=== PATIENT | male | born 1955 | race Caucasian/White ===

== ENCOUNTER 2021-06-30 15:07 | Emergency (ER) | payer MEDICARE, OTHER ==
[2021-06-30 16:14] VITALS: TEMP 97.9
--- NOTE | 2021-06-30 16:59 | XR ---
EXAMINATION TYPE: XR knee complete RT DATE OF EXAM: 06/30/2021 COMPARISON: NONE HISTORY: 66 years Male. STUDY INDICATION GIVEN: pain/fall . TECHNIQUE: 3 radiographs of the right knee IMPRESSION: No acute fracture or dislocation.No significant knee joint effusion. Normal knee joint alignment with mild to moderate tricompartmental osteoarthrosis. Distal quadriceps enthesophytes. Sclerosis of the distal femoral diaphysis which may be reflective of remote infarction, additional et iologies cannot be entirely excluded. Recommend correlation with another prior knee imaging and/or ob taining right femur MRI with and without contrast, may be performed on outpatient basis. Vascular calcifications are seen posteriorly.
--- NOTE | 2021-06-30 17:00 | XR ---
EXAMINATION TYPE: XR shoulder complete LT DATE OF EXAM: 06/30/2021 COMPARISON: NONE HISTORY: 66 years Male. STUDY INDICATION GIVEN: pain/fall . TECHNIQUE: 3 radiographs of the left shoulder IMPRESSION: No acute fracture or dislocation. Mild overlying soft tissue swelling. No significant degenerative changes seen.
[2021-06-30] MEDS ORDERED: ACET/COD 300 MG/30 MG STARTER PACK 6 TAB BTL PO STA (18:07)
[2021-06-30] MEDS ORDERED: Acetaminophen-Codeine 300-30mg TAB PO STA (18:07)
--- NOTE | 2021-06-30 18:08 | ED ---
Fall HPI - General Chief Complaint: Fall Stated Complaint: Fall Time Seen by Provider: 06/30/21 17:11 Source: patient Mode of arrival: EMS - History of Present Illness Initial Comments: Stef is a 76-year-old male with a history of Parkinson's disease presents to the ER today after a fall in his bathroom. Patient reports he sometimes has trouble when he starts walking due to the Parkinson's disease. Today he fell he grabbed his shower curtain with his left arm and fell onto his right knee. Patient reports pain in the left shoulder and right knee. He has been ambulatory since the fall A history of surgery to the knee and thought he should get checked out. - Related Data Allergies Allergy/AdvReac Type Severity Reaction Status Date / Time latex Allergy Unknown Verified 06/30/21 16:06 Review of Systems ROS Statement: Those systems with pertinent positive or pertinent negative responses have been documented in the HPI. ROS Other: All systems not noted in ROS Statement are negative. Past Medical History Past Medical History: Diabetes Mellitus, Hypertension Additional Past Medical History / Comment(s): parkinsons diseas History of Any Multi-Drug Resistant Organisms: None Reported Past Surgical History: No Surgical Hx Reported Past Psychological History: No Psychological Hx Reported Smoking Status: Never smoker Past Alcohol Use History: None Reported Past Drug Use History: None Reported General Exam - General Exam Comments Initial Comments: Physical Exam GENERAL: Patient is well-developed and well-nourished. Patient is nontoxic and well- hydrated and is in no distress. HENT: Normocephalic, Atraumatic. EYES: PERRL, EOMI PULMONARY: Unlabored respirations. No audible rales rhonchi or wheezing was noted. CARDIOVASCULAR: There is a regular rate and rhythm without any murmurs gallops or rubs. ABDOMEN: Soft and nontender with normal bowel sounds. SKIN: Skin is clear with no lesions or rashes and otherwise unremarkable. No bruising to shoulder : Deferred NEUROLOGIC: Patient is alert and oriented x3. Moving all extremities spontaneously No resting tremor MUSCULOSKELETAL: Normal extremities with adequate strength and full range of motion. No lower extremity swelling or edema. No calf tenderness. PSYCHIATRIC: Normal psychiatric evaluation. Limitations: no limitations Course Vital Signs 06/30/21 06/30/21 16:06 18:32 Temperature 97.9 F Pulse Rate 110 H 85 Respiratory 20 18 Rate Blood Pressure 150/96 147/87 O2 Sat by Pulse 95 95 Oximetry Medical Decision Making - Medical Decision Making Patient was seen and evaluated x-rays were reviewed him a no acute injuries were identified patient was treated with Tylenol 3 discharged home Disposition Clinical Impression: Fall Disposition: HOME SELF-CARE Condition: Stable Instructions (If sedation given, give patient instructions): Fall Prevention (ED) Is patient prescribed a controlled substance at d/c from ED?: No Referrals: Claribel Lopez MD [Primary Care Provider] - 1-2 days
[2021-06-30 18:34] VITALS: BP 147/87; PULSE 85; RESP 18
== END 2021-06-30 18:34 | disposition home or self-care (01) ==
LOC: EC 15:07
DX: M25.512 Pain in left shoulder (principal); M25.561 Pain in right knee; E11.9 Type 2 diabetes mellitus without complications; I10 Essential (primary) hypertension; Z91.040 Latex allergy status; W18.30XA Fall on same level, unspecified, initial encounter; Y92.002 Bathroom of unspecified non-institutional (private) residence as the place of occurrence of the external cause
CPT/HCPCS: 99284

== ENCOUNTER 2021-11-12 16:08 | Emergency (ER) | payer MEDICARE ==
[2021-11-12 16:17] VITALS: TEMP 98.2
[2021-11-12] MEDS ORDERED: SODIUM CHLORIDE 0.9% 2,000 ML IV STA (19:25)
--- NOTE | 2021-11-12 20:04 | XR ---
EXAMINATION TYPE: XR KUB DATE OF EXAM: 11/12/2021 COMPARISON: NONE HISTORY: Abdominal pain TECHNIQUE: 2 views upright FINDINGS: There is no sign of intestinal obstruction or pneumoperitoneum. Fecal pattern is normal. Jaycee ng bases are clear. There are no pathologic calcifications over the kidneys. IMPRESSION: Nonacute abdomen.
[2021-11-12 20:27] LABS: Basophils # (A) 0.1 k/uL (0-0.2); Basophils % (A) 1 %; Eosinophils # (A) 0.3 k/uL (0-0.7); Eosinophils % (A) 3 %; HCT 49.9 % (39.0-53.0); HGB 16.9 gm/dL (13.0-17.5); Lymphocytes # (A) 2.2 k/uL (1.0-4.8); Lymphocytes % (A) 22 %; MCH 30.2 pg (25.0-35.0); MCHC 33.9 g/dL (31.0-37.0); MCV 89.1 fL (80.0-100.0); Monocytes # (A) 0.5 k/uL (0-1.0); Monocytes % (A) 6 %; Neutrophils # (A) 6.6 k/uL (1.3-7.7); Neutrophils % (A) 68 %; Platelet Count 169 k/uL (150-450); RBC 5.61 m/uL (4.30-5.90); RDW 12.6 % (11.5-15.5); WBC 9.8 k/uL (3.8-10.6)
[2021-11-12 20:36] LABS: Albumin 4.4 g/dL (3.5-5.0); Calcium 9.1 mg/dL (8.4-10.2); Potassium 4.3 mmol/L (3.5-5.1); Total Protein 7.1 g/dL (6.3-8.2)
[2021-11-12] MEDS ORDERED: KETOROLAC 15 MG/ML 1 ML VIAL IVP STA (21:24)
--- NOTE | 2021-11-12 21:28 | CT ---
EXAMINATION TYPE: CT abdomen pelvis w con DATE OF EXAM: 11/12/2021 COMPARISON: None HISTORY: abdominal pain and distention CT DLP: 1634.2 mGycm Automated exposure control for dose reduction was used. CONTRAST: Performed with IV Contrast, patient injected with 100 mL of Isovue 300. Images obtained from the diaphragm to the floor the pelvis with IV contrast. Lung bases are clear. No pleural effusion. Heart size is normal. No pericardial effusion. Liver splee n and stomach pancreas appear intact. The bile duct are not dilated. There is no adrenal mass. Right kidney appears normal. Left kidney is small with cortical thinning. T here is enhancement of both kidneys. No renal obstruction. There is compensatory hypertrophy of the r ight kidney. No retroperitoneal adenopathy. There are some dilated vessels over the anterior abdomen. Bladder distends smoothly. There is prostate calcification. There is no inguinal hernia. No free flui d in the pelvis. There is no mesenteric edema. No ascites or free air. No bowel obstruction. The lumbar vertebra have normal alignment. There is disc space narrowing at L4-5 and L5-S1. No compre ssion fracture. Bony pelvis is intact. The hip joints are intact. Abdominal aorta is atheromatous. Appendix not clearly seen. No sign of thickened appendix. IMPRESSION: No acute abnormality of the abdomen and pelvis. Appendix not seen. There are prominent vessels over the anterior abdomen. This could relate to portal venous hypertensio n with varices. Hypoplastic or atrophic left kidney. Compensatory hypertrophy of the right kidney. No renal mass or o bstruction. 2 mm left renal calculus.
[2021-11-12] MEDS ORDERED: LIDOCAINE 5% PATCH TOPICAL SCH (21:30)
[2021-11-12] MEDS ORDERED: PEG 3350-NA SULF,BICARB,CL/KCL 4,000 ML BOTTLE PO ONE (21:56)
--- NOTE | 2021-11-12 22:04 | ED ---
General Adult HPI - General Chief complaint: Abdominal Pain Stated complaint: Abd Pain/Blood in Stool Time Seen by Provider: 11/12/21 19:09 Source: patient Mode of arrival: wheelchair Limitations: no limitations - History of Present Illness Initial comments: Patient is 66-year-old male who presents to the emergency department with a chief complaint of constipation. Patient states he has experienced intermittent constipation for the past 2 weeks. Patient states he had large bowel movement 2 days ago after milk of magnesia and prune juice. Patient states he feels constipated again today. Patient states he has had 4 small bowel movements today, nonbloody and has been passing gas. No nausea or vomiting. No abdominal pain but does feel bloated like he just ate a big meal. No history of bowel obstruction or abdominal surgery. Patient also mentions that his tailbone is sore from sliding in the bathtub. He did not fall. He has no other concerns. - Related Data Home Medications Medication Instructions Recorded Confirmed Carbidopa-Levodopa 25-100 mg 1 tab PO TID 11/12/21 11/12/21 [Sinemet 25-100] Dulaglutide [Trulicity] 1.5 mg SQ TU 11/12/21 11/12/21 Folic Acid 1 mg PO DAILY 11/12/21 11/12/21 Furosemide [Lasix] 20 mg PO DAILY 11/12/21 11/12/21 Insulin Glargine,Hum.rec.anlog 36 unit SQ DAILY 11/12/21 11/12/21 [Basaglar Kwikpen U-100] Potassium Chloride ER [K-Dur 10] 10 meq PO DAILY 11/12/21 11/12/21 Rosuvastatin Calcium [Crestor] 5 mg PO DAILY 11/12/21 11/12/21 amLODIPine [Norvasc] 5 mg PO DAILY 11/12/21 11/12/21 lisinopriL [Prinivil] 20 mg PO BID 11/12/21 11/12/21 metFORMIN HCL [Glucophage] 500 mg PO BID 11/12/21 11/12/21 Previous Rx's Medication Instructions Recorded Lidocaine 5% Patch [Lidoderm] 1 patch TOPICAL DAILY PRN #7 patch 11/12/21 Allergies Allergy/AdvReac Type Severity Reaction Status Date / Time latex Allergy Rash/Hives Verified 11/12/21 22:05 amantadine AdvReac constipatio Verified 11/12/21 22:06 n Review of Systems ROS Statement: Those systems with pertinent positive or pertinent negative responses have been documented in the HPI. ROS Other: All systems not noted in ROS Statement are negative. Past Medical History Past Medical History: Diabetes Mellitus, Hypertension Additional Past Medical History / Comment(s): parkinsons diseas History of Any Multi-Drug Resistant Organisms: None Reported Past Surgical History: No Surgical Hx Reported Past Psychological History: No Psychological Hx Reported Smoking Status: Never smoker Past Alcohol Use History: None Reported Past Drug Use History: None Reported General Exam Limitations: no limitations General appearance: alert, in no apparent distress Head exam: Present: atraumatic, normocephalic, normal inspection Eye exam: Present: normal appearance, PERRL, EOMI. Absent: scleral icterus, conjunctival injection, periorbital swelling Neck exam: Present: normal inspection Respiratory exam: Present: normal lung sounds bilaterally. Absent: respiratory distress, wheezes, rales, rhonchi, stridor Cardiovascular Exam: Present: regular rate, normal rhythm, normal heart sounds. Absent: systolic murmur, diastolic murmur, rubs, gallop, clicks GI/Abdominal exam: Present: soft, distended (moderate), normal bowel sounds. Absent: tenderness, guarding, rebound, rigid Back exam: Present: normal inspection, full ROM. Absent: tenderness, paraspinal tenderness, vertebral tenderness Neurological exam: Present: alert, oriented X3, CN II-XII intact Psychiatric exam: Present: normal affect, normal mood Skin exam: Present: warm, dry, intact, normal color. Absent: rash Course Vital Signs 11/12/21 11/12/21 16:15 22:47 Temperature 98.2 F 98.2 F Pulse Rate 111 H 98 Respiratory 18 17 Rate Blood Pressure 160/96 156/90 O2 Sat by Pulse 98 98 Oximetry Medical Decision Making - Medical Decision Making This is a 66-year-old male who presents with constipation. Thorough history and examination were performed. Patient is well-appearing and in no apparent distress. The abdomen is moderately distended and nontender. Patient denies abdominal pain, nausea, vomiting. Patient had 4 small bowel movements today. No history of bowel obstruction or abdominal surgery. KUB was obtained which showed possible air-fluid levels. With patient's distention and older age acute abdominal process could not be ruled out. CT of the abdomen and pelvis without contrast was obtained and reviewed with me by Dr. Garrido which showed moderate stool in the proximal colon. Results discussed with patient. With stool in the right colon is unlikely that an enema would benefit patient's constipation. Patient will be sent home with [employer] with instruction to start in the morning. I will also send him lidocaine patches for his tailbone. He declines imaging of the tailbone at this time. There is no evidence of injury. Patient instructed to follow-up with his primary care provider in one to 2 days. Return parameters discussed. Patient verbalizes understanding and is agreeable to this plan. Dr. Garrido is my attending. - Lab Data Result diagrams: 11/12/21 20:07 11/12/21 20:07 Lab Results 11/12/21 11/12/21 Range/Units 20:07 20:07 WBC 9.8 (3.8-10.6) k/uL RBC 5.61 (4.30-5.90) m/uL Hgb 16.9 (13.0-17.5) gm/dL Hct 49.9 (39.0-53.0) % MCV 89.1 (80.0-100.0) fL MCH 30.2 (25.0-35.0) pg MCHC 33.9 (31.0-37.0) g/dL RDW 12.6 (11.5-15.5) % Plt Count 169 (150-450) k/uL MPV 7.0 Neutrophils % 68 % Lymphocytes % 22 % Monocytes % 6 % Eosinophils % 3 % Basophils % 1 % Neutrophils # 6.6 (1.3-7.7) k/uL Lymphocytes # 2.2 (1.0-4.8) k/uL Monocytes # 0.5 (0-1.0) k/uL Eosinophils # 0.3 (0-0.7) k/uL Basophils # 0.1 (0-0.2) k/uL Sodium 135 L (137-145) mmol/L Potassium 4.3 (3.5-5.1) mmol/L Chloride 99 (98-107) mmol/L Carbon Dioxide 27 (22-30) mmol/L Anion Gap 9 mmol/L BUN 26 H (9-20) mg/dL Creatinine 1.04 (0.66-1.25) mg/dL Est GFR (CKD-EPI)AfAm 86 (>60 ml/min/1.73 sqM) Est GFR (CKD-EPI)NonAf 74 (>60 ml/min/1.73 sqM) Glucose 136 H (74-99) mg/dL Calcium 9.1 (8.4-10.2) mg/dL Total Bilirubin 1.0 (0.2-1.3) mg/dL AST 33 (17-59) U/L ALT 39 (4-49) U/L Alkaline Phosphatase 93 (38-126) U/L Total Protein 7.1 (6.3-8.2) g/dL Albumin 4.4 (3.5-5.0) g/dL Lipase 69 (23-300) U/L Disposition Clinical Impression: Constipation, Tailbone injury, Abdominal distension Disposition: HOME SELF-CARE Condition: Good Instructions (If sedation given, give patient instructions): Constipation (ED) Additional Instructions: Please use GoLYTELY tomorrow as directed. Apply lidocaine patches as directed. Follow-up with your primary care provider in one to 2 days. Return to the emergency department experience new, concerning, or worsening symptoms. Prescriptions: Lidocaine 5% Patch [Lidoderm] 1 patch TOPICAL DAILY PRN #7 patch PRN Reason: Pain Is patient prescribed a controlled substance at d/c from ED?: No Referrals: Claribel Lopez MD [Primary Care Provider] - 1-2 days Time of Disposition: 22:04
[2021-11-12 22:48] VITALS: BP 156/90; PULSE 98; RESP 17
== END 2021-11-12 22:48 | disposition home or self-care (01) ==
LOC: EC 16:08
DX: S39.92XA Unspecified injury of lower back, initial encounter (principal); K59.00 Constipation, unspecified; R14.0 Abdominal distension (gaseous); I10 Essential (primary) hypertension; E11.9 Type 2 diabetes mellitus without complications; Z91.040 Latex allergy status; X58.XXXA Exposure to other specified factors, initial encounter
CPT/HCPCS: 99284; 96374; 96361; 36415; 80053; 83690; 85025; 74018; 74177; J1885; Q9967

== ENCOUNTER 2021-12-16 06:44 | Day surgery (SDC) | payer MEDICARE ==
[2021-12-15 08:27] VITALS: BMI 29.8
[2021-12-16] MEDS ORDERED: LACTATED RINGERS 1,000 ML IV SCH (07:08)
[2021-12-16 07:31] VITALS: TEMP 97
[2021-12-16] MEDS ORDERED: LIDOCAINE 1% (10MG/ML) FOR IV START INTRADERMA ONE (07:35)
[2021-12-16 07:37] LABS: Glucose,Whole Blood 143 mg/dL (70-110)
[2021-12-16] MEDS ORDERED: PROPOFOL 10 MG/ML 20 ML VIAL IV ONE (07:45)
--- NOTE | 2021-12-16 07:55 | P.GSHP ---
History of Present Illness H&P Date: 12/16/21 Chief Complaint: Constipation: This is a 66-year-old male with history of change in bowel habits with constipation. Patient resents today for colonoscopy. Past Medical History Past Medical History: Diabetes Mellitus, Hyperlipidemia, Hypertension, Osteoarthritis (OA) Additional Past Medical History / Comment(s): parkinsons disease, CONSTIPATION, PLANTAR FACIITITS, NEUROPATHY, RT BIG TOE BUNION History of Any Multi-Drug Resistant Organisms: None Reported Past Surgical History: No Surgical Hx Reported, Tonsillectomy Additional Past Surgical History / Comment(s): CYSTOPSCOPY, SX FOR BLOCKKED URETHRA, COLONOSCOPY, BILAT CATARACTS REMOVED WITH LENS IMPLANTS Past Anesthesia/Blood Transfusion Reactions: No Reported Reaction Smoking Status: Never smoker - Past Family History Mother Family Medical History: No Reported History Medications and Allergies Home Medications Medication Instructions Recorded Confirmed Type Carbidopa-Levodopa 25-100 mg 1 tab PO TID 11/12/21 12/16/21 History [Sinemet 25-100] Dulaglutide [Trulicity] 1.5 mg SQ TU 11/12/21 12/16/21 History Folic Acid 1 mg PO DAILY 11/12/21 12/16/21 History Furosemide [Lasix] 20 mg PO DAILY 11/12/21 12/16/21 History Insulin Glargine,Hum.rec.anlog 36 unit SQ DAILY 11/12/21 12/16/21 History [Basaglar Kwikpen U-100] Lidocaine 5% Patch [Lidoderm] 1 patch TOPICAL DAILY PRN #7 patch 11/12/21 Rx Potassium Chloride ER [K-Dur 10] 10 meq PO DAILY 11/12/21 12/16/21 History Rosuvastatin Calcium [Crestor] 5 mg PO DAILY 11/12/21 12/16/21 History amLODIPine [Norvasc] 5 mg PO DAILY 11/12/21 12/16/21 History lisinopriL [Prinivil] 20 mg PO BID 11/12/21 12/16/21 History metFORMIN HCL [Glucophage] 500 mg PO BID 11/12/21 12/16/21 History Acetaminophen [Tylenol Arthritis] 650 mg PO DAILY PRN 12/15/21 12/16/21 History Cholecalciferol [Vitamin D3 (25 50 mcg PO DAILY 12/15/21 12/16/21 History Mcg = 1000 Iu)] Docusate [Colace] 100 mg PO DAILY 12/15/21 12/16/21 History Lactulose 10 gm PO ONCE 12/15/21 12/16/21 History Linaclotide [Linzess] 145 mcg PO DAILY 12/15/21 12/16/21 History Metamucil-Gummies 5 mg PO DAILY 12/15/21 12/16/21 History Allergies Allergy/AdvReac Type Severity Reaction Status Date / Time latex Allergy Rash/Hives Verified 12/16/21 07:08 amantadine AdvReac constipatio Verified 12/16/21 07:08 n Surgical - Exam Vital Signs Temp Pulse Resp BP Pulse Ox 97.0 F L 92 18 175/83 93 L 12/16/21 07:29 12/16/21 07:29 12/16/21 07:29 12/16/21 07:29 12/16/21 07:29 - General well developed, well nourished, no distress - Eyes PERRL - ENT normal pinna - Neck no masses - Respiratory normal expansion - Cardiovascular Rhythm: regular - Abdomen Abdomen: soft, non tender Results - Labs Abnormal Lab Results - Last 24 Hours (Table) 12/16/21 Range/Units 07:37 POC Glucose (mg/dL) 143 H (70-110) mg/dL Assessment and Plan Assessment: Constipation, change in bowel. We'll perform colonoscopy.
--- NOTE | 2021-12-16 08:11 | P.OP ---
Date of Procedure: 12/16/21 Preoperative Diagnosis: Constipation Change in bowel habit Postoperative Diagnosis: Mild diverticulosis Procedure(s) Performed: Colonoscopy Anesthesia: MAC Surgeon: Calvin Adan Pathology: none sent Condition: stable Disposition: PACU Description of Procedure: The patient's placed on the endoscopy table in the lateral position. He received IV sedation. Digital rectal exam was performed. This revealed a few internal and external hemorrhoids. The flexible colonoscope was then placed patient anus and passed throughout the entire colon. The ileocecal valve was visualized. The cecum, ascending and transverse colon appeared normal. In the descending and sigmoid colon is mild diverticular changes. The scope was then brought back the rectum and this appeared normal. Scope withdrawn for patient.
[2021-12-16 08:29] VITALS: BP 129/87; PULSE 82; RESP 16
== END 2021-12-16 08:58 | disposition home or self-care (01) ==
LOC: ORWHC2ENDO 06:44
PROVIDERS: ATTEND Surgery
DX: K57.30 Diverticulosis of large intestine without perforation or abscess without bleeding (principal); K64.8 Other hemorrhoids; K64.4 Residual hemorrhoidal skin tags; E78.5 Hyperlipidemia, unspecified; I10 Essential (primary) hypertension; E11.40 Type 2 diabetes mellitus with diabetic neuropathy, unspecified; G20 Parkinson's disease; M19.90 Unspecified osteoarthritis, unspecified site; M72.2 Plantar fascial fibromatosis; M21.611 Bunion of right foot; Z79.899 Other long term (current) drug therapy; Z79.4 Long term (current) use of insulin; Z88.8 Allergy status to other drugs, medicaments and biological substances; Z91.040 Latex allergy status; Z90.89 Acquired absence of other organs; Z98.890 Other specified postprocedural states; Z98.42 Cataract extraction status, left eye; Z98.41 Cataract extraction status, right eye; Z96.1 Presence of intraocular lens
CPT/HCPCS: 45378; J2704

== ENCOUNTER → 2022-11-21 | Outpatient (CLI) | payer MEDICARE ==
[2022-11-21 15:39] LABS: HCT 45.7 % (39.6-50.0); HGB 15.8 g/dL (13.0-17.0); MCHC 34.6 g/dL (32.0-37.0); MCV 89.8 fL (80.0-97.0); Mean Platelet Volume 9.9 fL (9.5-12.2); NRBC Per 100 WBC 0 /100 WBCS (0.0-0.0); Platelet Count 189 X 10*3/uL (140-440); RBC 5.09 X 10*6/uL (4.40-5.60); RDW 12.5 % (11.5-14.5); WBC 7.96 X 10*3/uL (4.50-10.00)
[2022-11-21 15:48] LABS: African American GFR (CKD) 67.5 (60.0-200.0); Anion Gap 12.3 mmol/L (10.00-18.00); Blood Urea Nitrogen 29.3 mg/dL (9.0-27.0); Carbon Dioxide 26.9 mmol/L (20.0-27.5); Non-African American GFR(CKD) 58.2 (60.0-200.0); Potassium 4.1 mmol/L (3.5-5.5)
== END | disposition home or self-care (01) ==
LOC: LABPAT 11:03
PROVIDERS: ATTEND Internal Medicine Interventional Cardiology
DX: Z01.812 Encounter for preprocedural laboratory examination (principal); I44.7 Left bundle-branch block, unspecified
CPT/HCPCS: 80051; 82565; 84520; 85027

== ENCOUNTER 2022-12-01 06:44 | Day surgery (SDC) | payer MEDICARE ==
[~2022-12-01 06:44] MED LIST: ALPRAZolam 0.25 MG TAB PO PRN; ALPRAZolam 0.5 MG TAB PO PRN; ASPIRIN 325 MG TAB PO STA; ATORVASTATIN 80 MG TAB PO STA; HEPARIN SODIUM,PORCINE 10,000 UNIT in SODIUM CHLORIDE 0.9% 1,000 ML IRRIGATION PRN; HEPARIN SODIUM,PORCINE 2,500 UNIT in SODIUM CHLORIDE 0.9% 250 ML IRRIGATION PRN; NITROGLYCERIN SL TABS 0.4 MG TAB SUBLINGUAL PRN; SODIUM CHLORIDE 0.9% 1,000 ML in EMPTY BAG 1 BAG IV ONE
[2022-12-01] MEDS ORDERED: carvediloL 6.25 MG TAB PO STA (07:05)
[2022-12-01] MEDS ORDERED: CARBIDOPA-LEVODOPA 25-100 MG 1 EACH TAB PO STA (07:06)
[2022-12-01] MEDS ORDERED: ASPIRIN 81 MG ONE (07:11)
[2022-12-01 07:17] VITALS: RESP 18; TEMP 97.9
[2022-12-01] MEDS ORDERED: VALSARTAN 160 MG TAB PO STA (07:37)
[2022-12-01] MEDS ORDERED: VERAPAMIL 2.5 MG/ML 2 ML AMP ONE ×2 (08:56→08:58)
[2022-12-01] MEDS ORDERED: hydroCHLOROthiazide 25 MG TAB PO SCH (09:00)
[2022-12-01] MEDS ORDERED: fentaNYL (PF) 50 MCG/ML 2 ML AMP ONE (09:07)
[2022-12-01] MEDS ORDERED: fentaNYL (PF) 50 MCG/1 ML VIAL IV ONE (09:38)
[2022-12-01] MEDS ORDERED: LIDOCAINE 1% INJ 10MG/ML (5 ML VIAL-PF) SQ ONE (09:41)
[2022-12-01] MEDS ORDERED: VERAPAMIL SYRINGE (5 MG/10 ML) INTRAARTER ONE (09:46)
[2022-12-01] MEDS ORDERED: HEPARIN SODIUM 1,000 UN/ML (10ML VL) IV ONE (09:46)
[2022-12-01] MEDS ORDERED: IOPAMIDOL-370 100ML BTL INJ ONE (10:00)
[2022-12-01] MEDS ORDERED: RX INFO: IV CONTRAST WAS GIVEN 1 EACH MISC MISCELLANE PRN (10:12)
[2022-12-01] MEDS ORDERED: SODIUM CHLORIDE 0.9% 1,000 ML IV SCH (10:15)
--- NOTE | 2022-12-01 10:19 | P.CARDCATH ---
Date of Procedure: 12/01/22 Description of Procedure: Cardiac Catheterization: The patient is a 67-year-old male with a known history of hypertension, hyperlipidemia and diabetes who was recently found to have a left bundle branch block and cardiomyopathy of unknown duration or etiology. Recommendations were made regarding cardiac catheterization, the risks and the complications were discussed with the patient who is in full understanding and agreement. Procedure Description: Patient was brought to labor commissioner in fasting semi-sedated state after receiving Fentanyl and Benadryl achieiving moderate conscious sedated state. Using Xylocaine Anesthesia and Seldinger technique, a 6-[place] sheath was introduced in the right radial artery . Subsequently, selective coronary angiography was performed using a 5-[place] 3.5 bent Peña catheter and 6-[place] Frannie catheter to cannulate the left main. Attempts to cannulate the left main with 3.5 and 4.0 bend left Peña catheter were unsuccessful. Multiple views of the coronary artery including hemiaxial views were obtained. The left Peña catheter was used to cross the aortic valve and LVEDP was calculated. Following that, catheter and sheath were removed. Hemostasis was obtained with deployment of TR band . There was no immediate complication. Patient was returned to room in stable condition. Of note, the patient received a total of 5000 units of intravenous heparin as well as intra-arterial verapamil. Findings: Left main: This is a large size vessel, trifurcating into LAD, left circumflex and ramus intermedius, left main has no high-grade stenosis. LAD: This is a large size vessel, reaching to the apex with a wraparound apex segment giving rise to a large diagonal branch. The LAD and its branches have no obstructive disease Left circumflex: This is a dominant vessel, bifurcating distally to PDA and PLV giving rise to 2 small OM, the left circumflex has no obstructive disease RCA: This is a nondominant vessel that has no evidence of high-grade stenosis Ramus intermedius: This is a large size vessel that has 20-30% plaque proximally, the risks of the vessel has no high-grade stenosis Left Ventriculogram: Not performed Hemodynamics: There was no gradient across the aortic valve, LVEDP was 20-25 mmHg Conclusion: 1. Mild obstructive disease in the ramus intermedius 2. No obstructive disease in the LAD and left circumflex 3. Left dominance 4. Mildly elevated LVEDP Recommendations: I have recommended to continue medical therapy, the patient will be evaluated for biventricular pacemaker implantation depending on his progress. The findings and the recommendations were discussed with the patient and the family and they were in full understanding and agreement. Duration of sedation is 24 minutes.
[2022-12-01] MEDS ORDERED: amLODIPine 5 MG TAB PO STA (12:41)
[2022-12-01] MEDS ORDERED: CARBIDOPA-LEVODOPA 25-100 MG 1 EACH TAB PO SCH (13:00)
[2022-12-01 14:40] VITALS: BP 159/77; PULSE 78
[2022-12-01] MEDS ORDERED: carvediloL 6.25 MG TAB PO SCH (17:30)
[2022-12-02] MEDS ORDERED: VALSARTAN 160 MG TAB PO SCH (09:00)
[2022-12-02] MEDS ORDERED: FUROSEMIDE 20 MG TAB PO SCH (09:00)
[2022-12-02] MEDS ORDERED: ATORVASTATIN 10 MG TAB PO SCH (09:00)
[2022-12-06] MEDS ORDERED: NON FORMULARY DRUG (Dulaglutide [Trulicity] 1.5 MG/0.5 ML Each) SQ SCH (10:13)
== END 2022-12-01 14:43 | disposition home or self-care (01) ==
LOC: CATHCVL 06:44
PROVIDERS: ATTEND Internal Medicine Interventional Cardiology
DX: I25.10 Atherosclerotic heart disease of native coronary artery without angina pectoris (principal); I10 Essential (primary) hypertension; E78.5 Hyperlipidemia, unspecified; E11.9 Type 2 diabetes mellitus without complications; I44.7 Left bundle-branch block, unspecified; Z82.49 Family history of ischemic heart disease and other diseases of the circulatory system; Z91.040 Latex allergy status; Z79.899 Other long term (current) drug therapy
CPT/HCPCS: 93458; C1769 ×2; C1894; J2001; J1644; Q9967; J3010

== ENCOUNTER → 2022-12-29 | Outpatient (CLI) | payer MEDICARE ==
[2022-12-29 17:18] LABS: ALT 34 U/L (10-49); AST 21 U/L (14-35); Albumin 4.4 d/dL (3.8-4.9); Albumin/Globulin Ratio 1.83 Ratio (1.60-3.17); Alkaline Phosphatase 97 U/L (41-126); BUN/Creat Ratio 19.09 Ratio (12.00-20.00); Calcium 9.4 mg/dL (8.7-10.3); Carbon Dioxide 24.8 mmol/L (21.6-31.8); Chloride 101 mmol/L (96-109); Chol/HDL Ratio 2.49 Ratio; Globulin 2.4 d/dL (1.6-3.3); Glucose 141 mg/dL (70-110); LDL Cholesterol,Calculated 36.1 mg/dL (0.0-131.0); Potassium 4.5 mmol/L (3.5-5.5); Sodium 139 mmol/L (135-145); Total Bilirubin 0.8 mg/dL (0.3-1.2); Total Protein 6.8 d/dL (6.2-8.2)
== END | disposition home or self-care (01) ==
LOC: LABWHC1 09:45
PROVIDERS: ATTEND Internal Medicine Interventional Cardiology
DX: E78.2 Mixed hyperlipidemia (principal)
CPT/HCPCS: 36415; 80053; 80061

== ENCOUNTER 2023-03-15 12:50 | Emergency (ER) | payer MEDICARE ==
[2023-03-15 13:08] VITALS: RESP 18
[2023-03-15 14:49] LABS: Basophils % (A) 0 %; Eosinophils # (A) 0.3 k/uL (0-0.7); Eosinophils % (A) 3 %; HCT 50.5 % (39.0-53.0); HGB 17.4 gm/dL (13.0-17.5); Lymphocytes # (A) 1.4 k/uL (1.0-4.8); Lymphocytes % (A) 12 %; MCH 31.2 pg (25.0-35.0); MCHC 34.4 g/dL (31.0-37.0); MCV 90.6 fL (80.0-100.0); Mean Platelet Volume 7.5; Monocytes # (A) 0.6 k/uL (0-1.0); Monocytes % (A) 5 %; Neutrophils # (A) 9.4 k/uL (1.3-7.7); Neutrophils % (A) 79 %; Platelet Count 172 k/uL (150-450); RBC 5.57 m/uL (4.30-5.90); RDW 13.5 % (11.5-15.5); WBC 11.9 k/uL (3.8-10.6)
[2023-03-15 15:01] LABS: INR 0.9 (<1.2); Partial Thromboplastin Time 24.3 sec (22.0-30.0); Prothrombin Time 10.1 sec (9.0-12.0)
[2023-03-15 15:06] LABS: ALT 22 U/L (4-49); AST 34 U/L (17-59); African American GFR (CKD) 84 (>60 ml/min/1.73 sqM); Albumin 4.3 g/dL (3.5-5.0); Alkaline Phosphatase 98 U/L (38-126); Anion Gap 8 mmol/L; Blood Urea Nitrogen 22 mg/dL (9-20); Calcium 9.2 mg/dL (8.4-10.2); Carbon Dioxide 27 mmol/L (22-30); Chloride 101 mmol/L (98-107); Glucose 88 mg/dL (74-99); Magnesium 1.9 mg/dL (1.6-2.3); Non-African American GFR(CKD) 73 (>60 ml/min/1.73 sqM); Potassium 4.8 mmol/L (3.5-5.1); Sodium 136 mmol/L (137-145); Total Bilirubin 1.1 mg/dL (0.2-1.3); Total Protein 7.2 g/dL (6.3-8.2)
[2023-03-15 15:13] LABS: NT-Pro-B-Type Natriuretic Pept 1080 pg/mL
--- NOTE | 2023-03-15 15:36 | XR ---
EXAMINATION TYPE: XR chest 2V DATE OF EXAM: 03/15/2023 COMPARISON: NONE TECHNIQUE: PA and lateral views submitted. HISTORY: Syncope FINDINGS: The lungs are clear and there is no pneumothorax, pleural effusion, or focal pneumonia. Heart size normal and no overt failure. Osseous structures demonstrate hypertrophic and degenerative changes of the spine. The mediastinum is widened. Suspect underlying mass or aneurysm. Hyperinflation of the pino gs. Correlate for COPD. IMPRESSION: 1. Widened mediastinum. Recommend CT scan of the chest to assess for posttraumatic injury, aneurysm, or mass.
--- NOTE | 2023-03-15 15:37 | XR ---
EXAMINATION TYPE: XR shoulder complete RT DATE OF EXAM: 03/15/2023 COMPARISON: NONE HISTORY: Pain TECHNIQUE: Three views are submitted. FINDINGS: The osseous structures are intact. There is no acute fracture or dislocation. The AC joint is maint ained. Diffuse osteopenia. IMPRESSION: 1. No acute process.
--- NOTE | 2023-03-15 15:55 | ED ---
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 Patient states that she has Parkinson's and was at home trying to clean the bathroom as he had an accident. He states he started feeling very dizzy and lightheaded and states he fell forward. Patient went of right shoulder pain. Patient denies any head injury normal loss conscious denies any neck pain. Family is concerned has he was dizzy and he also has had some recent leg swelling. He did see his PCP who advised to increase his medication neurology and discussed also following up with cardiology. Patient states he feels like he is at his normal baseline he has no focal weakness. Denies any chest pain or shortness of breath. No back pain. (Christian Haynes) This is a 68-year-old male with dizziness and a fall with concern for possible syncopal event. Patient has syncopal event Right shoulder pain lightheadedness and dizziness but symptoms here in the ER he feels well has no complaints no complaints of dizziness or shortness of breath, no chest pain headache abdominal pain currently (Nazario Guido) - Related Data Home Medications Medication Instructions Recorded Confirmed Carbidopa-Levodopa 25-100 mg 1 tab PO QID 11/12/21 03/15/23 [Sinemet 25-100] Dulaglutide [Trulicity] 1.5 mg SQ TU 11/12/21 03/15/23 Folic Acid 1 mg PO DAILY 11/12/21 03/15/23 Furosemide [Lasix] 20 mg PO DAILY 11/12/21 03/15/23 Insulin Glargine,Hum.rec.anlog 36 unit SQ DAILY 11/12/21 03/15/23 [Basaglar Kwikpen U-100] Potassium Chloride ER [K-Dur 10] 10 meq PO DAILY 11/12/21 03/15/23 Rosuvastatin Calcium [Crestor] 5 mg PO DAILY 11/12/21 03/15/23 metFORMIN HCL [Glucophage] 500 mg PO BID 11/12/21 03/15/23 Acetaminophen [Tylenol Arthritis] 1,300 mg PO DAILY PRN 12/15/21 03/15/23 Cholecalciferol [Vitamin D3 (25 50 mcg PO DAILY 12/15/21 03/15/23 Mcg = 1000 Iu)] Docusate [Colace] 100 mg PO BID 12/15/21 03/15/23 Lactulose 10 gm PO DAILY 12/15/21 03/15/23 Linaclotide [Linzess] 145 mcg PO DAILY 12/15/21 03/15/23 Empagliflozin [Jardiance] 10 mg PO DAILY 03/15/23 03/15/23 Psyllium Husk (with Sugar) 1 tsp PO DAILY PRN 03/15/23 03/15/23 [Metamucil Powder] Sacubitril/Valsartan [Entresto 24 1 tab PO BID 03/15/23 03/15/23 mg-26 mg Tablet] carvediloL [Coreg] 12.5 mg PO BID 03/15/23 03/15/23 Allergies Allergy/AdvReac Type Severity Reaction Status Date / Time latex Allergy Rash/Hives Verified 03/15/23 13:48 amantadine AdvReac constipatio Verified 03/15/23 13:48 n Review of Systems ROS Other: All systems not noted in ROS Statement are negative. <Christian Haynes - Last Filed: 03/15/23 15:53> ROS Other: All systems not noted in ROS Statement are negative. <Nazario Guido - Last Filed: 03/22/23 17:53> ROS Statement: Those systems with pertinent positive or pertinent negative responses have been documented in the HPI. Past Medical History Past Medical History: Heart Failure Additional Past Medical History / Comment(s): parkinsons disease, CONSTIPATION, PLANTAR FACIITITS, NEUROPATHY, RT BIG TOE BUNION History of Any Multi-Drug Resistant Organisms: None Reported Past Surgical History: Tonsillectomy Additional Past Surgical History / Comment(s): CYSTOPSCOPY, SX FOR BLOCKKED URETHRA, COLONOSCOPY, BILAT CATARACTS REMOVED WITH LENS IMPLANTS Past Anesthesia/Blood Transfusion Reactions: No Reported Reaction Past Psychological History: No Psychological Hx Reported Smoking Status: Never smoker Past Alcohol Use History: None Reported Past Drug Use History: None Reported - Past Family History Mother Family Medical History: No Reported History <Christian Haynes - Last Filed: 03/15/23 15:53> General Exam Limitations: no limitations General appearance: alert, in no apparent distress Head exam: Present: atraumatic, normocephalic, normal inspection Eye exam: Present: normal appearance, PERRL, EOMI. Absent: scleral icterus, conjunctival injection, periorbital swelling ENT exam: Present: normal exam, normal oropharynx, mucous membranes moist Neck exam: Present: normal inspection, full ROM. Absent: tenderness, meningismus, lymphadenopathy Respiratory exam: Present: normal lung sounds bilaterally. Absent: respiratory distress, wheezes, rales, rhonchi, stridor Cardiovascular Exam: Present: regular rate, normal rhythm, normal heart sounds. Absent: systolic murmur, diastolic murmur, rubs, gallop, clicks GI/Abdominal exam: Present: soft, normal bowel sounds. Absent: distended, tenderness, guarding, rebound, rigid Extremities exam: Present: other (Right shoulder tenderness) Back exam: Present: full ROM. Absent: tenderness, muscle spasm, paraspinal tenderness Neurological exam: Present: alert, oriented X3, CN II-XII intact, reflexes normal. Absent: motor sensory deficit Skin exam: Present: warm, dry, intact, normal color. Absent: rash <Christian Haynes - Last Filed: 03/15/23 15:53> General appearance: alert, in no apparent distress, anxious Head exam: Present: atraumatic, normocephalic, normal inspection Eye exam: Present: normal appearance, PERRL, EOMI. Absent: scleral icterus, conjunctival injection, periorbital swelling ENT exam: Present: normal exam, mucous membranes moist Neck exam: Present: normal inspection. Absent: tenderness, meningismus, lymphadenopathy Respiratory exam: Present: normal lung sounds bilaterally. Absent: respiratory distress, wheezes, rales, rhonchi, stridor Cardiovascular Exam: Present: regular rate, normal rhythm, normal heart sounds. Absent: systolic murmur, diastolic murmur, rubs, gallop, clicks GI/Abdominal exam: Present: soft, normal bowel sounds. Absent: distended, tenderness, guarding, rebound, rigid Extremities exam: Present: normal inspection, full ROM, normal capillary refill. Absent: tenderness, pedal edema, joint swelling, calf tenderness Back exam: Present: normal inspection Neurological exam: Present: alert, oriented X3, CN II-XII intact Psychiatric exam: Present: normal affect, normal mood Skin exam: Present: warm, dry, intact, normal color. Absent: rash <Nazario Guido - Last Filed: 03/22/23 17:53> Course <Nazario Guido - Last Filed: 03/22/23 17:53> Vital Signs 03/15/23 03/15/23 03/15/23 13:00 16:23 18:48 Temperature 98.2 F 97.9 F 97.9 F Pulse Rate 92 85 89 Respiratory 18 17 18 Rate Blood Pressure 126/79 137/83 145/82 O2 Sat by Pulse 93 L 96 99 Oximetry - Reevaluation(s) Reevaluation #1: 03/15/23 18:29 Medical record is reviewed (Nazario Guido) Reevaluation #2: 03/15/23 18:29 Patient symptoms improved no current syncope here in the ER, patient feels well (Nazario Guido) Reevaluation #3: 03/15/23 18:29 Patient family informed of results questions answered (Nazario Guido) Reevaluation #4: 03/15/23 18:29 Was pt. sent in by a medical professional or institution (, PA, SPECIAL WARFARE OPERATOR, urgent care, hospital, or long term...) When possible be specific @ -no Did you speak to anyone other than the patient for history (EMS, parent, family, police, friend...)? What history was obtained from this source @ -no Did you review nursing and triage notes (agree or disagree)? Why? @ -agree Are old charts reviewed (outside hosp., previous admission, EMS record, old EKG, old radiological studies, urgent care reports/EKG's, long term records)? Report findings @ -yes Differential Diagnosis (chest pain, altered mental status, abdominal pain women, abdominal pain men, vaginal bleeding, weakness, fever, dyspnea, syncope, headache, dizziness, GI bleed, back pain, seizure, CVA, palpatations, mental health, musculoskeletal)? @ -prior EKG interpreted by me (3pts min.). @ -yes X-rays interpreted by me (1pt min.). @ -yes CT interpreted by me (1pt min.). @ -yes U/S interpreted by me (1pt. min.). @ -no What testing was considered but not performed or refused? (CT, X-rays, U/S, labs)? Why? @ -none What meds were considered but not given or refused? Why? @ -none Did you discuss the management of the patient with other professionals (professionals i.e. , PA, SPECIAL WARFARE OPERATOR, lab, RT, psych nurse, social media developer, home health assistant, teacher, dog license officer supervisor, immigration case worker)? Give summary @ -no Was smoking cessation discussed for >3mins.? @ -no Was critical care preformed (if so, how long)? @ -no Were there social determinants of health that impacted care today? How? (Homel essness, low income, unemployed, alcoholism, drug addiction, transportation, low edu. Level, literacy, decrease access to med. care, [place] [facility], rehab)? @ -none Was there de-escalation of care discussed even if they declined (Discuss DNR or withdrawal of care, Hospice)? DNR status @ -no What co-morbidities impacted this encounter? (DM, HTN, Smoking, COPD, CAD, Cancer, CVA, ARF, Chemo, Hep., AIDS, mental health diagnosis, sleep apnea, morbid obesity)? @ -none Was patient admitted / discharged? Hospital course, mention meds given and route, prescriptions, significant lab abnormalities, going to OR and other pertinent info. @ - 68 male to the emergency department for evaluation of syncopal event. Patient has normal testing here in the ER feels well throughout entire emergency department stay, patient and family prefer discharged at this time, patient has not had recurrent syncopal event here in the ER Discharged Undiagnosed new problem with uncertain prognosis? @ -no Drug Therapy requiring intensive monitoring for toxicity (Heparin, Nitro, Insulin, Cardizem)? @ -no Were any procedures done? @ -no Diagnosis/symptom? @ -Syncope Acute, or Chronic, or Acute on Chronic? @ -Acute Uncomplicated (without systemic symptoms) or Complicated (systemic symptoms)? @ -Complicated Side effects of treatment? @ -no Exacerbation, Progression, or Severe Exacerbation? @ -exacerbation Poses a threat to life or bodily function? How? (Chest pain, [place], [place], pneumonia, PE, COPD, DKA, ARF, appy, cholecystitis, CVA, Diverticulitis, Homicidal, Suicidal, threat to staff... and all critical care pts) @ -yes cause of syncope leading to mortality (Nazario Guido) Reevaluation #5: 03/15/23 18:29 Differential Dizziness: Benign paroxysmal positional Vertigo, Menieres disease, otitis media, acoustic neuroma, vertebrobasilar insufficiency, cerebellar stroke, encephalitis, hypovolemic, arrhythmia, coronary artery syndrome, anemia, this is not meant to be an all-inclusive list Differential Syncope: Valvular disease, hypertrophic cardiomyopathy, pulmonary embolism, tamponade, tachycardia, bradycardia, [place], hypovolemia, hemorrhage, dissection, anemia, intracranial hemorrhage, seizure, hypoglycemia, carbon monoxide poisoning, this is not meant to be an all-inclusive list. (Nazario Guido) Medical Decision Making - Lab Data Result diagrams: 03/15/23 14:35 03/15/23 14:35 - EKG Data -: EKG Interpreted by Vt <Christian Haynes - Last Filed: 03/15/23 15:53> - Lab Data Result diagrams: 03/15/23 14:35 03/15/23 14:35 - Radiology Data Radiology results: report reviewed (CT angios chest is negative for acute disease), image reviewed <Nazario Guido - Last Filed: 03/22/23 17:53> - Medical Decision Making 68 male to the emergency department for evaluation of syncopal event. Patient has normal testing here in the ER feels well throughout entire emergency department stay, patient and family prefer discharged at this time, patient has not had recurrent syncopal event here in the ER (Nazario Guido) - Lab Data Lab Results 03/15/23 03/15/23 03/15/23 Range/Units 14:35 14:35 14:35 WBC 11.9 H (3.8-10.6) k/uL RBC 5.57 (4.30-5.90) m/uL Hgb 17.4 (13.0-17.5) gm/dL Hct 50.5 (39.0-53.0) % MCV 90.6 (80.0-100.0) fL MCH 31.2 (25.0-35.0) pg MCHC 34.4 (31.0-37.0) g/dL RDW 13.5 (11.5-15.5) % Plt Count 172 (150-450) k/uL MPV 7.5 Neutrophils % 79 % Lymphocytes % 12 % Monocytes % 5 % Eosinophils % 3 % Basophils % 0 % Neutrophils # 9.4 H (1.3-7.7) k/uL Lymphocytes # 1.4 (1.0-4.8) k/uL Monocytes # 0.6 (0-1.0) k/uL Eosinophils # 0.3 (0-0.7) k/uL Basophils # 0.0 (0-0.2) k/uL PT 10.1 (9.0-12.0) sec INR 0.9 (<1.2) APTT 24.3 (22.0-30.0) sec Sodium 136 L (137-145) mmol/L Potassium 4.8 (3.5-5.1) mmol/L Chloride 101 (98-107) mmol/L Carbon Dioxide 27 (22-30) mmol/L Anion Gap 8 mmol/L BUN 22 H (9-20) mg/dL Creatinine 1.05 (0.66-1.25) mg/dL Est GFR (CKD-EPI)AfAm 84 (>60 ml/min/1.73 sqM) Est GFR (CKD-EPI)NonAf 73 (>60 ml/min/1.73 sqM) Glucose 88 (74-99) mg/dL Calcium 9.2 (8.4-10.2) mg/dL Magnesium 1.9 (1.6-2.3) mg/dL Total Bilirubin 1.1 (0.2-1.3) mg/dL AST 34 (17-59) U/L ALT 22 (4-49) U/L Alkaline Phosphatase 98 (38-126) U/L Troponin I (0.000-0.034) ng/mL NT-Pro-B Natriuret Pep 1080 pg/mL Total Protein 7.2 (6.3-8.2) g/dL Albumin 4.3 (3.5-5.0) g/dL 03/15/23 Range/Units 14:35 WBC (3.8-10.6) k/uL RBC (4.30-5.90) m/uL Hgb (13.0-17.5) gm/dL Hct (39.0-53.0) % MCV (80.0-100.0) fL MCH (25.0-35.0) pg MCHC (31.0-37.0) g/dL RDW (11.5-15.5) % Plt Count (150-450) k/uL MPV Neutrophils % % Lymphocytes % % Monocytes % % Eosinophils % % Basophils % % Neutrophils # (1.3-7.7) k/uL Lymphocytes # (1.0-4.8) k/uL Monocytes # (0-1.0) k/uL Eosinophils # (0-0.7) k/uL Basophils # (0-0.2) k/uL PT (9.0-12.0) sec INR (<1.2) APTT (22.0-30.0) sec Sodium (137-145) mmol/L Potassium (3.5-5.1) mmol/L Chloride (98-107) mmol/L Carbon Dioxide (22-30) mmol/L Anion Gap mmol/L BUN (9-20) mg/dL Creatinine (0.66-1.25) mg/dL Est GFR (CKD-EPI)AfAm (>60 ml/min/1.73 sqM) Est GFR (CKD-EPI)NonAf (>60 ml/min/1.73 sqM) Glucose (74-99) mg/dL Calcium (8.4-10.2) mg/dL Magnesium (1.6-2.3) mg/dL Total Bilirubin (0.2-1.3) mg/dL AST (17-59) U/L ALT (4-49) U/L Alkaline Phosphatase (38-126) U/L Troponin I 0.017 (0.000-0.034) ng/mL NT-Pro-B Natriuret Pep pg/mL Total Protein (6.3-8.2) g/dL Albumin (3.5-5.0) g/dL - EKG Data EKG Comments: EKG performed at 13:54 sinus rhythm with a rate of 89 CA 200 QRS 172 QT status QTC 421/468 (Christian Haynes) Disposition <Christian Haynes - Last Filed: 03/15/23 15:53> Is patient prescribed a controlled substance at d/c from ED?: No Time of Disposition: 18:25 <Nazario Guido - Last Filed: 03/22/23 17:53> Clinical Impression: Weakness, Syncope, Pre-syncope Disposition: HOME SELF-CARE Condition: Fair Instructions (If sedation given, give patient instructions): Syncope (ED) Referrals: Claribel Lopez MD [Primary Care Provider] - 1-2 days
--- NOTE | 2023-03-15 17:40 | CT ---
CT CHEST FOR PULMONARY EMBOLISM. EXAMINATION TYPE: CT angio chest DATE OF EXAM: 03/15/2023 INDICATION: Abnormal xray, widened mediastinum CT DLP: 1196.4 mGycm, Automated exposure control for dose reduction was used. CONTRAST: Patient injected with 100ml mL of Isovue 370. COMPARISON: None TECHNIQUE: CT of the chest is performed on a spiral scan at 2 mm thick sections. Study is performed with intravenous contrast timed for evaluation for pulmonary embolism. This will limit additional po rtions of the evaluation. 3-D MIP images reconstructed by the technologist are reviewed on the compu ter in the coronal and sagittal planes. FINDINGS: No persistent filling defects are evident to suggest an acute pulmonary embolism. No mediastinal or hilar adenopathy enlarged by CT criteria is evident. The ascending aorta diameter at the level of the main pulmonary artery is 4.5 cm. The main pulmonary artery diameter at the bifur cation is 3.3 cm. Lung windows are clear. There is tortuosity of thoracic aorta which may account for the widened mediastinum. Limited CT section through the upper abdomen are unremarkable. IMPRESSION: 1. No acute pulmonary process. 2. Ascending thoracic aortic aneurysm. 3. Aortic Tortuosity may account for the widened mediastinum.
[2023-03-16 15:44] VITALS: BP 145/82; PULSE 89; TEMP 97.9
== END 2023-03-15 18:50 | disposition home or self-care (01) ==
LOC: EC 12:50
DX: R53.1 Weakness (principal); R42 Dizziness and giddiness; I71.21 Aneurysm of the ascending aorta, without rupture; I50.9 Heart failure, unspecified; Z91.040 Latex allergy status; Z88.8 Allergy status to other drugs, medicaments and biological substances
CPT/HCPCS: 36415; 93005; 83880; 80053; 83735; 84484; 85025; 85610; 85730; 73030; 71046; 71275; 99285; Q9967

== ENCOUNTER → 2023-03-18 | Outpatient (CLI) | payer MEDICARE ==
[2023-03-18 12:05] LABS: African American GFR (CKD) 89 (>60 ml/min/1.73 sqM); Anion Gap 6 mmol/L; Blood Urea Nitrogen 19 mg/dL (9-20); Carbon Dioxide 27 mmol/L (22-30); Chloride 103 mmol/L (98-107); Non-African American GFR(CKD) 77 (>60 ml/min/1.73 sqM); Potassium 4.4 mmol/L (3.5-5.1); Sodium 136 mmol/L (137-145)
[2023-03-18 12:13] LABS: NT-Pro-B-Type Natriuretic Pept 953 pg/mL
== END | disposition home or self-care (01) ==
LOC: LABWHC1 09:35
PROVIDERS: ATTEND Internal Medicine Interventional Cardiology
DX: I42.8 Other cardiomyopathies (principal)
CPT/HCPCS: 36415; 80051; 82565; 83880; 84520

== ENCOUNTER → 2023-06-12 | Outpatient (CLI) | payer MEDICARE ==
[2023-06-12 12:15] LABS: African American GFR (CKD) >90 (>60 ml/min/1.73 sqM); Anion Gap 10 mmol/L; Blood Urea Nitrogen 20 mg/dL (9-20); Calcium 9.1 mg/dL (8.4-10.2); Carbon Dioxide 27 mmol/L (22-30); Chloride 100 mmol/L (98-107); Glucose 92 mg/dL (74-99); Non-African American GFR(CKD) 80 (>60 ml/min/1.73 sqM); Potassium 3.9 mmol/L (3.5-5.1); Sodium 137 mmol/L (137-145)
[2023-06-12 12:21] LABS: NT-Pro-B-Type Natriuretic Pept 614 pg/mL
[2023-06-12 14:29] LABS: ALT 18 U/L (4-49); AST 27 U/L (17-59); Albumin 4.1 g/dL (3.5-5.0); Albumin/Globulin Ratio 1.6; Alkaline Phosphatase 88 U/L (38-126); Globulin 2.6 g/dL; Total Bilirubin 0.9 mg/dL (0.2-1.3); Total Protein 6.7 g/dL (6.3-8.2)
[2023-06-12 19:00] LABS: Chol/HDL Ratio 2.58 Ratio; LDL Cholesterol,Calculated 35.8 mg/dL (0.0-131.0)
== END | disposition home or self-care (01) ==
LOC: LABWHC1 09:08
PROVIDERS: ATTEND Internal Medicine Interventional Cardiology
DX: I42.8 Other cardiomyopathies (principal); I50.22 Chronic systolic (congestive) heart failure; E78.2 Mixed hyperlipidemia
CPT/HCPCS: 36415; 80053; 80061; 83880

== ENCOUNTER → 2023-06-28 | Day surgery (SDC) | payer MEDICARE ==
[2023-06-23 10:55] VITALS: BMI 30.6
[~2023-06-28] MED LIST changes: -ALPRAZolam 0.25 MG TAB PO PRN; -ALPRAZolam 0.5 MG TAB PO PRN; -ASPIRIN 325 MG TAB PO STA; -ATORVASTATIN 80 MG TAB PO STA; +BENZOCAINE SPRAY 1 CAN MUCOUS MEM ONE; +CARBIDOPA-LEVODOPA 25-100 MG 1 EACH TAB PO SCH; +FOLIC ACID 1 MG TAB PO SCH; +FUROSEMIDE 20 MG TAB PO SCH; -HEPARIN SODIUM,PORCINE 10,000 UNIT in SODIUM CHLORIDE 0.9% 1,000 ML IRRIGATION PRN; -HEPARIN SODIUM,PORCINE 2,500 UNIT in SODIUM CHLORIDE 0.9% 250 ML IRRIGATION PRN; +INSULIN GLARGINE HUM REC ANLOG 100 UNIT/ML SQ SCH; +MIDAZOLAM 2 MG/2 ML VIAL IVP ONE; -NITROGLYCERIN SL TABS 0.4 MG TAB SUBLINGUAL PRN; +NON FORMULARY DRUG (Dulaglutide [Trulicity] 1.5 MG/0.5 ML Each) SQ SCH; +NON FORMULARY DRUG (Empagliflozin [Jardiance] 10 MG Tablet) PO SCH; +NON FORMULARY DRUG (Linaclotide [Linzess] 145 MCG Capsule) PO SCH; +NON FORMULARY DRUG (Rosuvastatin Calcium [Crestor] 5 MG Tablet) PO SCH; +POTASSIUM CHLORIDE ER 10 MEQ TAB.ER.PRT PO SCH; +PSYLLIUM HUSK 575 GM PO PRN; +SACUBITRIL/VALSARTAN 49 MG-51 MG TABLET PO SCH; +SODIUM CHLORIDE 0.9% 1,000 ML IV SCH; -SODIUM CHLORIDE 0.9% 1,000 ML in EMPTY BAG 1 BAG IV ONE; +SODIUM CHLORIDE 0.9% 500 ML 500 ML IV ONE; +[UNRECOGNIZED DRUG - OTHER] PO PRN; +[UNRECOGNIZED DRUG - OTHER] SQ SCH; +carvediloL 12.5 MG TAB PO SCH; +fentaNYL (PF) 50 MCG/ML 2 ML AMP IVP ONE; +fentaNYL (PF) 50 MCG/ML 2 ML AMP ONE; +metFORMIN 500 MG TAB PO SCH
[2023-06-28 06:38] LABS: Glucose,Whole Blood 109 mg/dL (70-110)
[2023-06-28 06:44] VITALS: TEMP 98.1
--- NOTE | 2023-06-28 07:43 | P.PCN ---
Date of Procedure: 06/28/23 Description of Procedure: Indication: Cardiomyopathy Procedure Description: After explaining the procedure to the patient, it's risk and complications, blood pressure, heart rate and O2 saturation were monitored. The throat was sprayed with Cetacaine. Patient received 2 mg intravenous Versed, 50 mcg intrav enous fentanyl. The probe was introduced into the esophagus without difficulty. Images were obtained. Following that, the probe was removed. There was no immediate complication. Findings: Left atrial size is normal, left atrial appendage is normal. Left ventricle systolic function is moderately impaired, ejection fraction 45-50%. The aortic valve is a bicuspid valve with a raphe was preserved opening and mild calcification. Mild calcifications of the mitral valve leaflets was noted. Tricuspid valve is normal. No pericardial effusion was noted. Contrast bubble study. No shunting across the intra-atrial septum. Descending thoracic aorta appears to be normal. The ascending aorta is mildly dilated Doppler: Pulse wave and color Doppler were obtained, and revealed mild mitral and tr icuspid regurgitation with moderate central aortic regurgitation. There was no shunting across the intra-atrial septum. Conclusion: 1. Normal appearance of the left atrial appendage 2. Left ventricle systolic function 45-50% 3. Bicuspid aortic valve with preserved opening and moderate regurgitation 4. And mild mitral and tricuspid regurgitation 5. Normal appearance of the descending thoracic aorta.
[2023-06-28 10:37] VITALS: BP 165/76; PULSE 72; RESP 16
== END | disposition home or self-care (01) ==
LOC: CATHCVL 05:41
PROVIDERS: ATTEND Internal Medicine Interventional Cardiology
DX: I08.1 Rheumatic disorders of both mitral and tricuspid valves (principal); I42.9 Cardiomyopathy, unspecified; I10 Essential (primary) hypertension; E11.9 Type 2 diabetes mellitus without complications; G20.A1 Parkinson's disease without dyskinesia, without mention of fluctuations; Z79.84 Long term (current) use of oral hypoglycemic drugs; Z79.4 Long term (current) use of insulin; Z79.85 Long-term (current) use of injectable non-insulin antidiabetic drugs; Z79.01 Long term (current) use of anticoagulants; Z79.899 Other long term (current) drug therapy; Z86.74 Personal history of sudden cardiac arrest; Z91.041 Radiographic dye allergy status; Z87.891 Personal history of nicotine dependence
CPT/HCPCS: 93312; 93320; 93325; J2250; J3010

== ENCOUNTER 2023-07-28 16:55 | Emergency (ER) | payer BC, MEDICARE ==
--- NOTE | 2023-07-28 17:17 | ED ---
Skin/Abscess/FB HPI - General Chief complaint: Skin/Abscess/Foreign Body Stated complaint: L Foot Wound Time Seen by Provider: 07/28/23 17:04 Source: patient, family, RN notes reviewed, old records reviewed Mode of arrival: wheelchair Limitations: no limitations - History of Present Illness Initial comments: This is a 68-year-old male to the ER for evaluation, patient sent in by garage helper for evaluation of left foot swelling left foot pain here in the emergency department. Patient has no specific complaints regarding foot and he said it was evaluated by garage helper as they are evaluating swelling of his legs when noted to have swelling and redness of the foot, patient has no fevers and no other complaints MD complaint: rash, abscess/boil, discoloration -: unknown Location: LLE, L foot Severity scale (1-10): 3 Consistency: constant Improves with: none Worsens with: none Context: none Associated symptoms: denies other symptoms Treatments Prior to Arrival: none - Related Data Home Medications Medication Instructions Recorded Confirmed Carbidopa-Levodopa 25-100 mg 1 tab PO QID 11/12/21 06/28/23 [Sinemet 25-100] Dulaglutide [Trulicity] 1.5 mg SQ TU 11/12/21 06/23/23 Folic Acid 1 mg PO DAILY 11/12/21 06/28/23 Furosemide [Lasix] 20 mg PO DAILY 11/12/21 06/28/23 Potassium Chloride ER [K-Dur 10] 10 meq PO DAILY 11/12/21 06/28/23 Rosuvastatin Calcium [Crestor] 5 mg PO DAILY 11/12/21 06/28/23 metFORMIN HCL [Glucophage] 500 mg PO BID 11/12/21 06/28/23 Acetaminophen [Tylenol Arthritis] 1,300 mg PO DAILY PRN 12/15/21 06/23/23 Cholecalciferol [Vitamin D3 (25 50 mcg PO DAILY 12/15/21 06/28/23 Mcg = 1000 Iu)] Docusate [Colace] 100 mg PO BID 12/15/21 06/28/23 Linaclotide [Linzess] 145 mcg PO DAILY 12/15/21 06/28/23 Empagliflozin [Jardiance] 10 mg PO DAILY 03/15/23 06/28/23 Psyllium Husk (with Sugar) 1 tsp PO DAILY PRN 03/15/23 06/23/23 [Metamucil Powder] carvediloL [Coreg] 12.5 mg PO BID 03/15/23 06/28/23 Insulin Glargine,Hum.rec.anlog 32 units SQ QAM 06/23/23 06/28/23 [Basaglar Tempo Pen U-100] Sacubitril/Valsartan [Entresto 49 1 each PO BID 06/23/23 06/28/23 mg-51 mg Tablet] Previous Rx's Medication Instructions Recorded Amoxic-Pot Clav 875-125Mg 1 tab PO BID 1 Days #2 tab 07/28/23 [Augmentin 875-125] Sulfamethox-Tmp 800-160Mg [Bactrim 1 tab PO Q12HR #14 tab 07/28/23 DS 800-160 mg] Allergies Allergy/AdvReac Type Severity Reaction Status Date / Time latex Allergy Rash/Hives Verified 06/23/23 10:36 amantadine AdvReac constipatio Verified 06/23/23 10:36 n Review of Systems ROS Statement: Those systems with pertinent positive or pertinent negative responses have been documented in the HPI. ROS Other: All systems not noted in ROS Statement are negative. Past Medical History Past Medical History: Heart Failure, Diabetes Mellitus Additional Past Medical History / Comment(s): parkinson's disease, CONSTIPATION, PLANTAR FASCITITS, NEUROPATHY, RT BIG TOE BUNION History of Any Multi-Drug Resistant Organisms: None Reported Past Surgical History: Tonsillectomy Additional Past Surgical History / Comment(s): CYSTOPSCOPY-SX FOR BLOCKKED URETHRA, COLONOSCOPY, BILAT CATARACTS REMOVED WITH LENS IMPLANTS Past Anesthesia/Blood Transfusion Reactions: No Reported Reaction Past Psychological History: No Psychological Hx Reported Smoking Status: Never smoker - Past Family History Sister(s) Family Medical History: Cancer Additional Family Medical History / Comment(s): skin General Exam Limitations: no limitations General appearance: alert, in no apparent distress Head exam: Present: atraumatic, normocephalic, normal inspection Eye exam: Present: normal appearance, PERRL, EOMI. Absent: scleral icterus, conjunctival injection, periorbital swelling ENT exam: Present: normal exam, mucous membranes moist Neck exam: Present: normal inspection. Absent: tenderness, meningismus, lymphadenopathy Respiratory exam: Present: normal lung sounds bilaterally. Absent: respiratory distress, wheezes, rales, rhonchi, stridor Cardiovascular Exam: Present: regular rate, normal rhythm, normal heart sounds. Absent: systolic murmur, diastolic murmur, rubs, gallop, clicks GI/Abdominal exam: Present: soft, normal bowel sounds. Absent: distended, tenderness, guarding, rebound, rigid Extremities exam: Present: normal inspection, full ROM, normal capillary refill, other (Some left foot swelling and abrasion with surrounding cellulitis). Absent: tenderness, pedal edema, joint swelling, calf tenderness Back exam: Present: normal inspection Neurological exam: Present: alert, oriented X3, CN II-XII intact Psychiatric exam: Present: normal affect, normal mood Skin exam: Present: warm, dry, intact, normal color. Absent: rash Course Vital Signs 07/28/23 16:57 Temperature 97.4 F L Pulse Rate 79 Respiratory 18 Rate Blood Pressure 129/86 O2 Sat by Pulse 97 Oximetry - Reevaluation(s) Reevaluation #1: Medical records reviewed Reevaluation #2: Patient symptoms unchanged Reevaluation #3: Patient informed of results and questions were answered Reevaluation #4: Was pt. sent in by a medical professional or institution (, PA, GILL BOX TENDER, urgent care, hospital, or usp...) When possible be specific @ -no Did you speak to anyone other than the patient for history (EMS, parent, family, police, friend...)? What history was obtained from this source @ -no Did you review nursing and triage notes (agree or disagree)? Why? @ -agree Are old charts reviewed (outside hosp., previous admission, EMS record, old EKG, old radiological studies, urgent care reports/EKG's, usp records)? Report findings @ -yes Differential Diagnosis (chest pain, altered mental status, abdominal pain women, abdominal pain men, vaginal bleeding, weakness, fever, dyspnea, syncope, headache, dizziness, GI bleed, back pain, seizure, CVA, palpatations, mental health, musculoskeletal)? @ -prior EKG interpreted by me (3pts min.). @ -no X-rays interpreted by me (1pt min.). @ -no CT interpreted by me (1pt min.). @ -no U/S interpreted by me (1pt. min.). @ -no What testing was considered but not performed or refused? (CT, X-rays, U/S, labs)? Why? @ -none What meds were considered but not given or refused? Why? @ -none Did you discuss the management of the patient with other professionals (pro fessionals i.e. , PA, GILL BOX TENDER, lab, RT, psych nurse, psychosocial rehabilitation counselor, public accountant, teacher, special service officer, employment evaluator/case manager)? Give summary @ -no Was smoking cessation discussed for >3mins.? @ -no Was critical care preformed (if so, how long)? @ -no Were there social determinants of health that impacted care today? How? (Homelessness, low income, unemployed, alcoholism, drug addiction, transportation, low edu. Level, literacy, decrease access to med. care, retirement, rehab)? @ -none Was there de-escalation of care discussed even if they declined (Discuss DNR or withdrawal of care, Hospice)? DNR status @ -no What co-morbidities impacted this encounter? (DM, HTN, Smoking, COPD, CAD, Cancer, CVA, ARF, Chemo, Hep., AIDS, mental health diagnosis, sleep apnea, morbid obesity)? @ -none Was patient admitted / discharged? Hospital course, mention meds given and route, prescriptions, significant lab abnormalities, going to OR and other pertinent info. @ - 68 female to ER for evaluation of abdominal pain foot pain history of diabetic foot ulcer, patient has little mild cellulitis of the foot, patient will be placed on antibiotics and can be discharged home Discharge Undiagnosed new problem with uncertain prognosis? @ -no Drug Therapy requiring intensive monitoring for toxicity (Heparin, Nitro, Insulin, Cardizem)? @ -no Were any procedures done? @ -no Diagnosis/symptom? @ -Diabetic foot ulcer left foot with cellulitis Acute, or Chronic, or Acute on Chronic? @ -Acute Uncomplicated (without systemic symptoms) or Complicated (systemic symptoms)? @ -Complicated Side effects of treatment? @ -no Exacerbation, Progression, or Severe Exacerbation? @ -exacerbation Poses a threat to life or bodily function? How? (Chest pain, [place], [place], pneumonia, PE, COPD, DKA, ARF, appy, cholecystitis, CVA, Diverticulitis, Homicidal, Suicidal, threat to staff... and all critical care pts) @ -no Medical Decision Making - Medical Decision Making 68 female to ER for evaluation of abdominal pain foot pain history of diabetic foot ulcer, patient has little mild cellulitis of the foot, patient will be placed on antibiotics and can be discharged home Disposition Clinical Impression: Contact dermatitis, Foot ulcer, left, Abrasion of left foot Disposition: HOME SELF-CARE Instructions (If sedation given, give patient instructions): Foot Care for People with Diabetes (ED), Diabetic Foot Ulcers (ED) Prescriptions: Amoxic-Pot Clav 875-125Mg [Augmentin 875-125] 1 tab PO BID 1 Days #2 tab Sulfamethox-Tmp 800-160Mg [Bactrim DS 800-160 mg] 1 tab PO Q12HR #14 tab Is patient prescribed a controlled substance at d/c from ED?: No Referrals: Claribel Lopez MD [Primary Care Provider] - 1-2 days Time of Disposition: 17:10
[2023-07-28 17:19] VITALS: BP 129/86; PULSE 79; RESP 18; TEMP 97.4
[2023-07-28] MEDS: SULFAMETHOX-TMP 800-160MG 1 EACH TAB PO STA (17:38)
[2023-07-28] MEDS: AMOXIC-POT CLAV 875-125MG 1 EACH TAB PO STA (17:38)
[2023-07-28] MEDS: AMOXIC-POT CLAV 875MG STARTER PACK 2 TAB BTL PO STA (17:39)
[2023-07-28] MEDS: SULFAMETH-TMP DS STARTER PACK 2 TAB BTL PO STA (17:39)
== END 2023-07-28 17:49 | disposition home or self-care (01) ==
LOC: EC 16:55
DX: S90.812A Abrasion, left foot, initial encounter (principal); L25.9 Unspecified contact dermatitis, unspecified cause; E11.621 Type 2 diabetes mellitus with foot ulcer; E11.36 Type 2 diabetes mellitus with diabetic cataract; I50.9 Heart failure, unspecified; Z79.4 Long term (current) use of insulin; Z79.84 Long term (current) use of oral hypoglycemic drugs; Z91.040 Latex allergy status; Z88.8 Allergy status to other drugs, medicaments and biological substances; X58.XXXA Exposure to other specified factors, initial encounter
CPT/HCPCS: 99283

== ENCOUNTER → 2023-10-05 | Outpatient (CLI) | payer MEDICARE ==
[2023-10-05 15:30] LABS: NT-Pro-B-Type Natriuretic Pept 854 pg/mL (0-125)
[2023-10-05 15:36] LABS: ALT 44 U/L (10-49); AST 32 U/L (14-35); Albumin 4.3 g/dL (3.8-4.9); Albumin/Globulin Ratio 1.65 Ratio (1.60-3.17); Alkaline Phosphatase 112 U/L (41-126); Blood Urea Nitrogen 13.6 mg/dL (9.0-27.0); Calcium 9.3 mg/dL (8.7-10.3); Carbon Dioxide 25.4 mmol/L (21.6-31.8); Chloride 101 mmol/L (96-109); Globulin 2.6 g/dL (1.6-3.3); Glucose 114 mg/dL (70-110); Sodium 140 mmol/L (135-145); Total Bilirubin 0.8 mg/dL (0.3-1.2); Total Protein 6.9 g/dL (6.2-8.2)
== END | disposition home or self-care (01) ==
LOC: LABWHC1 09:38
PROVIDERS: ATTEND Internal Medicine Interventional Cardiology
DX: I42.8 Other cardiomyopathies (principal)
CPT/HCPCS: 36415; 80053; 83880

== ENCOUNTER 2023-10-25 12:29 | Emergency (ER) | payer MEDICARE ==
--- NOTE | 2023-10-25 12:56 | ED ---
Fall HPI - General Chief Complaint: Fall Stated Complaint: Fall Time Seen by Provider: 10/25/23 12:53 Source: patient, EMS Mode of arrival: EMS - History of Present Illness Initial Comments: 68-year-old male presenting to the ER via EMS with a chief complaint of a fall. Patient states he was cleaning himself up after having a bout of diarrhea. He reports he get constipated and has to take Linzess for relief. He reprots his knees gave out and he landed on his walker. He states he was in a "praying position". He denies any head injury, loss of consciousness. He is on blood thinners. Does have a past medical history significant Parkinson's disease. Denies any dizziness, lightheadedness, chest pain, shortness of breath prior to fall. He states his was unable to get him up as he weighs too much so they had to call EMS for assistance. Patient is currently complaining of bilateral knee soreness and lumbar spine discomfort. EMS state they found patient he was in a kneeling position holding onto his walker. Patient denies any other complaints. - Related Data Home Medications Medication Instructions Recorded Confirmed Carbidopa-Levodopa 25-100 mg 1 tab PO QID 11/12/21 06/28/23 [Sinemet 25-100] Dulaglutide [Trulicity] 1.5 mg SQ TU 11/12/21 06/23/23 Folic Acid 1 mg PO DAILY 11/12/21 06/28/23 Furosemide [Lasix] 20 mg PO DAILY 11/12/21 06/28/23 Potassium Chloride ER [K-Dur 10] 10 meq PO DAILY 11/12/21 06/28/23 Rosuvastatin Calcium [Crestor] 5 mg PO DAILY 11/12/21 06/28/23 metFORMIN HCL [Glucophage] 500 mg PO BID 11/12/21 06/28/23 Acetaminophen [Tylenol Arthritis] 1,300 mg PO DAILY PRN 12/15/21 06/23/23 Cholecalciferol [Vitamin D3 (25 50 mcg PO DAILY 12/15/21 06/28/23 Mcg = 1000 Iu)] Docusate [Colace] 100 mg PO BID 12/15/21 06/28/23 Linaclotide [Linzess] 145 mcg PO DAILY 12/15/21 06/28/23 Empagliflozin [Jardiance] 10 mg PO DAILY 03/15/23 06/28/23 Psyllium Husk (with Sugar) 1 tsp PO DAILY PRN 03/15/23 06/23/23 [Metamucil Powder] carvediloL [Coreg] 12.5 mg PO BID 03/15/23 06/28/23 Insulin Glargine,Hum.rec.anlog 32 units SQ QAM 06/23/23 06/28/23 [Basaglar Tempo Pen U-100] Sacubitril/Valsartan [Entresto 49 1 each PO BID 06/23/23 06/28/23 mg-51 mg Tablet] Previous Rx's Medication Instructions Recorded Amoxic-Pot Clav 875-125Mg 1 tab PO BID 1 Days #2 tab 07/28/23 [Augmentin 875-125] Sulfamethox-Tmp 800-160Mg [Bactrim 1 tab PO Q12HR #14 tab 07/28/23 DS 800-160 mg] Allergies Allergy/AdvReac Type Severity Reaction Status Date / Time latex Allergy Rash/Hives Verified 06/23/23 10:36 amantadine AdvReac constipatio Verified 06/23/23 10:36 n Review of Systems ROS Statement: Those systems with pertinent positive or pertinent negative responses have been documented in the HPI. ROS Other: All systems not noted in ROS Statement are negative. Past Medical History Past Medical History: Heart Failure, Diabetes Mellitus Additional Past Medical History / Comment(s): parkinson's disease, CONSTIPATION, PLANTAR FASCITITS, NEUROPATHY, RT BIG TOE BUNION, fluid sac on head History of Any Multi-Drug Resistant Organisms: None Reported Past Surgical History: Tonsillectomy Additional Past Surgical History / Comment(s): CYSTOPSCOPY-SX FOR BLOCKKED URETHRA, COLONOSCOPY, BILAT CATARACTS REMOVED WITH LENS IMPLANTS Past Anesthesia/Blood Transfusion Reactions: No Reported Reaction Past Psychological History: No Psychological Hx Reported Smoking Status: Never smoker - Past Family History Sister(s) Family Medical History: Cancer Additional Family Medical History / Comment(s): skin General Exam Limitations: no limitations General appearance: alert, in no apparent distress Head exam: Present: atraumatic, normocephalic, normal inspection Respiratory exam: Present: normal lung sounds bilaterally. Absent: respiratory distress, wheezes, rales, rhonchi, stridor Cardiovascular Exam: Present: regular rate, normal rhythm, normal heart sounds. Absent: systolic murmur, diastolic murmur, rubs, gallop, clicks GI/Abdominal exam: Present: soft, normal bowel sounds. Absent: distended, tenderness, guarding, rebound, rigid Extremities exam: Present: normal inspection, full ROM, normal capillary refill. Absent: tenderness, pedal edema, joint swelling, calf tenderness Course Vital Signs 10/25/23 10/25/23 12:32 13:46 Temperature 98 F Pulse Rate 84 87 Respiratory 18 18 Rate Blood Pressure 148/85 157/90 O2 Sat by Pulse 95 95 Oximetry Medical Decision Making - Medical Decision Making Was pt. sent in by a medical professional or institution (, PA, SOIL SCIENCE TECHNICAL OFFICER, urgent care, hospital, or usp...) When possible be specific @ -No Did you speak to anyone other than the patient for history (EMS, parent, family, police, friend...)? What history was obtained from this source @ -EMS stating they found dakota in a kneeling position holding onto his walker. Did you review nursing and triage notes (agree or disagree)? Why? @ -I reviewed and agree with nursing and triage notes Were old charts reviewed (outside hosp., previous admission, EMS record, old EKG, old radiological studies, urgent care reports/EKG's, usp records)? Report findings @ -No old charts were reviewed Differential Diagnosis (chest pain, altered mental status, abdominal pain women, abdominal pain men, vaginal bleeding, weakness, fever, dyspnea, syncope, headache, dizziness, GI bleed, back pain, seizure, CVA, palpatations, mental health, musculoskeletal)? @ -Fracture, dislocation, contusion, hematoma, intracranial hemorrhage, concussion, abrasion, laceration this list does not like to be all-inclusive EKG interpreted by me (3pts min.). @ -None X-rays interpreted by me (1pt min.). @ -Lumbar spine xrays interpreted by me negative for acute process. Bilateral knee x-rays negative for acute process. On the right there is an intramedullary sclerotic lesion of the distal femoral shaft. CT interpreted by me (1pt min.). @ -None done U/S interpreted by me (1pt. min.). @ -None done What testing was considered but not performed or refused? (CT, X-rays, U/S, labs)? Why? @ -None What meds were considered but not given or refused? Why? @ -None Did you discuss the management of the patient with other professionals (professionals i.e. , PA, SOIL SCIENCE TECHNICAL OFFICER, lab, RT, psych nurse, social worker health services, immigration lawyer, teacher, chief administrative officer, case management coordinator)? Give summary @ -No Was smoking cessation discussed for >3mins.? @ -No Was critical care preformed (if so, how long)? @ -No Were there social determinants of health that impacted care today? How? (Homelessness, low income, unemployed, alcoholism, drug addiction, transporta tion, low edu. Level, literacy, decrease access to med. care, usp, rehab)? @ -No Was there de-escalation of care discussed even if they declined (Discuss DNR or withdrawal of care, Hospice)? DNR status @ -No What co-morbidities impacted this encounter? (DM, HTN, Smoking, COPD, CAD, Cancer, CVA, ARF, Chemo, Hep., AIDS, mental health diagnosis, sleep apnea, morbid obesity)? @ -Parkinson's Was patient admitted / discharged? Hospital course, mention meds given and route, prescriptions, significant lab abnormalities, going to OR and other pertinent info. @ -Discharge. 68-year-old male presenting to the ER with chief complaint of a fall. History and physical exam completed. Vitals stable. Patient denies head injury or loss of consciousness. Patient no signs of acute distress and nontox ic-appearing. No focal tenderness on palpation of bilateral upper and lower extremities. Bilateral upper and lower extremities neurovascular intact. No focal back tenderness. X-rays obtained negative for acute process. Laboratory studies obtained due to recent bouts of diarrhea unimpressive. Patient received by mouth Tylenol for pain control in the ER. Upon reevaluation, patient eager for discharge. Strict return parameters discussed. Patient discharged in stable condition with follow-up to PCP. Patient and , at bedside, expressed understanding and agreement with care plan. Case discussed with ED attending, Dr. Pace. Undiagnosed new problem with uncertain prognosis? @ -No Drug Therapy requiring intensive monitoring for toxicity (Heparin, Nitro, Insulin, Cardizem)? @ -No Were any procedures done? @ -No Diagnosis/symptom? @ -Fall Acute, or Chronic, or Acute on Chronic? @ -Acute Uncomplicated (without systemic symptoms) or Complicated (systemic symptoms)? @ -Uncomplicated Side effects of treatment? @ -No Exacerbation, Progression, or Severe Exacerbation? @ -No Poses a threat to life or bodily function? How? (Chest pain, [place], [place], pneumonia, PE, COPD, DKA, ARF, appy, cholecystitis, CVA, Diverticulitis, Homicidal, Suicidal, threat to staff... and all critical care pts) @ -No - Lab Data Result diagrams: 10/25/23 13:05 10/25/23 13:05 Lab Results 10/25/23 10/25/23 Range/Units 13:05 13:05 WBC 7.9 (3.8-10.6) k/uL RBC 5.75 (4.30-5.90) m/uL Hgb 17.5 (13.0-17.5) gm/dL Hct 52.4 (39.0-53.0) % MCV 91.2 (80.0-100.0) fL MCH 30.4 (25.0-35.0) pg MCHC 33.3 (31.0-37.0) g/dL RDW 12.8 (11.5-15.5) % Plt Count 196 (150-450) k/uL MPV 7.1 Sodium 138 (137-145) mmol/L Potassium 4.4 (3.5-5.1) mmol/L Chloride 104 (98-107) mmol/L Carbon Dioxide 25 (22-30) mmol/L Anion Gap 9 mmol/L BUN 22 H (9-20) mg/dL Creatinine 0.97 (0.66-1.25) mg/dL Est GFR (CKD-EPI)AfAm >90 (>60 ml/min/1.73 sqM) Est GFR (CKD-EPI)NonAf 80 (>60 ml/min/1.73 sqM) Glucose 111 H (74-99) mg/dL Calcium 8.9 (8.4-10.2) mg/dL Total Bilirubin 1.2 (0.2-1.3) mg/dL AST 34 (17-59) U/L ALT 17 (4-49) U/L Alkaline Phosphatase 96 (38-126) U/L Total Protein 6.8 (6.3-8.2) g/dL Albumin 4.0 (3.5-5.0) g/dL - Radiology Data Radiology results: report reviewed, image reviewed Disposition Clinical Impression: Fall Disposition: HOME SELF-CARE Condition: Stable Instructions (If sedation given, give patient instructions): Fall Prevention for Older Adults (ED) Additional Instructions: Follow-up with PCP. Return to the ER for any new or worsening concerns. Is patient prescribed a controlled substance at d/c from ED?: No Referrals: Claribel Lopez MD [Primary Care Provider] - 1-2 days Time of Disposition: 14:25
[2023-10-25 13:10] VITALS: RESP 18; TEMP 98
[2023-10-25 13:10] LABS: HCT 52.4 % (39.0-53.0); HGB 17.5 gm/dL (13.0-17.5); MCH 30.4 pg (25.0-35.0); MCHC 33.3 g/dL (31.0-37.0); MCV 91.2 fL (80.0-100.0); Mean Platelet Volume 7.1; Platelet Count 196 k/uL (150-450); RBC 5.75 m/uL (4.30-5.90); RDW 12.8 % (11.5-15.5); WBC 7.9 k/uL (3.8-10.6)
[2023-10-25 13:37] LABS: ALT 17 U/L (4-49); AST 34 U/L (17-59); African American GFR (CKD) >90 (>60 ml/min/1.73 sqM); Alkaline Phosphatase 96 U/L (38-126); Anion Gap 9 mmol/L; Blood Urea Nitrogen 22 mg/dL (9-20); Calcium 8.9 mg/dL (8.4-10.2); Carbon Dioxide 25 mmol/L (22-30); Chloride 104 mmol/L (98-107); Glucose 111 mg/dL (74-99); Non-African American GFR(CKD) 80 (>60 ml/min/1.73 sqM); Potassium 4.4 mmol/L (3.5-5.1); Sodium 138 mmol/L (137-145); Total Bilirubin 1.2 mg/dL (0.2-1.3); Total Protein 6.8 g/dL (6.3-8.2)
[2023-10-25] MEDS: ACETAMINOPHEN TAB 325 MG TAB PO STA (13:44)
[2023-10-25 13:57] VITALS: BP 157/90; PULSE 87
--- NOTE | 2023-10-25 14:07 | XR ---
EXAMINATION TYPE: XR lumbar spine 3V, XR knee complete 3 views bilateral DATE OF EXAM: 10/25/2023 Comparison: None Clinical History: [age]-year-old male with pain after fall Findings: Lumbar spine: 1.2 cm calcification at the left upper quadrant, etiology unclear. Suspect a small [address] one. Osteopenia. 5 lumbar type vertebral bodies. Hypertrophic facet arthropathy mid to lower lumbar spine. Mild degenerative disc disease throughout, more moderate L1-L2 and L2/L3. Some stranding of the norm al lumbar lordosis with preserved alignment. Vertebral body heights are preserved. Knees: There is a heterogeneous sclerotic oval lesion within the distal femoral shaft intramedullary space o n the right measuring 5.2 x 2.3 cm. No associated periostitis or osteolysis. Vascular calcifications. Tiny density in the suprapatellar region along the quadriceps tendon. Extensor mechanism otherwise i ntact. No knee joint effusion. Only trace knee joint effusion on the left. There is minimal to mild t ricompartmental degenerative spurring on both sides. Otherwise, no acute fracture, subluxation, or di slocation seen. Impression: Lumbar spine: 1. Hypertrophic facet arthropathy mid to lower lumbar spine with straightening of the normal lumbar l ordosis. No malalignment. 2. No vertebral compression collapse. 3. Moderate degenerative disc disease L-1-L2 and L2-L3. Mild elsewhere in the lumbar spine. 4. 4 mm nonobstructive left renal calculus. Bilateral knees: 4. On the left, there is a trace joint effusion and minimal degenerative spurring. No acute osseous a bnormality seen. 5. On the right, there is a small 5 mm density located just above the patella. Correlate for any poin t tenderness to exclude a tiny avulsion fracture at the quadriceps insertion. Otherwise, no acute oss eous abnormality seen. 6. Also noted on the right, an intramedullary sclerotic lesion of the distal femoral shaft measuring 5.2 x 2.3 cm. A chondroid lesion such as enchondroma is favored. No cortical destruction or periostea l reaction. Consider orthopedic referral for any potential surveillance follow-up. Conservative imagi ng follow-up in 6 months can be performed. Sooner if new bone pain arises from here.
== END 2023-10-25 14:53 | disposition home or self-care (01) ==
LOC: EC 12:29
DX: M25.561 Pain in right knee (principal); Z91.040 Latex allergy status; Z88.8 Allergy status to other drugs, medicaments and biological substances; W19.XXXA Unspecified fall, initial encounter
CPT/HCPCS: 36415; 72100; 80053; 85027; 99285

== ENCOUNTER → 2023-11-04 | Outpatient (CLI) | payer MEDICARE ==
--- NOTE | 2023-11-04 12:02 | MR ---
EXAMINATION TYPE: MR lumbar spine wo/w con DATE OF EXAM: 11/04/2023 COMPARISON: None HISTORY: Leg weakness, hx of Parkinson's TECHNIQUE: Multiplanar, multisequence images of the lumbar spine were acquired without and with 11 mL intravenou s Gadavist gadolinium contrast. Findings: The lumbar vertebral segments are normal in height and alignment and there is no fracture or subluxat ion. There is mild to moderate multilevel degenerative disease with mild to moderate disc space narrowing, mild spondylosis, decreased signal intensity and discogenic endplate changes. There is no lumbar disc herniation. There is no spinal stenosis. There is mild facet arthropathy at the L3-4 and L4-5 levels. The conus medullaris cauda equina appear normal. There is no significant neural foraminal stenosis. IMPRESSION: 1. Lumbar spine normal in height and alignment without fracture or subluxation. 2. No lumbar disc herniation or spinal stenosis. 3. Mild to moderate multilevel degenerative disc disease. 4. No neural foraminal stenosis. 5. Mild facet arthropathy at the L3-4 and L4-5 levels.
== END | disposition home or self-care (01) ==
LOC: RADMRIMAIN 10:51
PROVIDERS: ATTEND Psychiatry & Neurology Neurology
DX: M51.36 Other intervertebral disc degeneration, lumbar region (principal); M47.816 Spondylosis without myelopathy or radiculopathy, lumbar region; R29.898 Other symptoms and signs involving the musculoskeletal system
CPT/HCPCS: 72158; A9585

== ENCOUNTER → 2023-11-06 | Outpatient (CLI) | payer MEDICARE ==
[2023-11-06 17:20] LABS: BUN/Creat Ratio 19.58 Ratio (12.00-20.00); Blood Urea Nitrogen 23.5 mg/dL (9.0-27.0); Calcium 9.5 mg/dL (8.7-10.3); Carbon Dioxide 22.7 mmol/L (21.6-31.8); Chloride 104 mmol/L (96-109); Glucose 143 mg/dL (70-110); Sodium 139 mmol/L (135-145)
[2023-11-06 17:26] LABS: HCT 53.8 % (39.6-50.0); HGB 18.1 g/dL (13.0-17.0); MCH 30.3 pg (27.0-32.0); MCHC 33.6 g/dL (32.0-37.0); MCV 90.1 FL (80.0-97.0); Mean Platelet Volume 10.1 FL (9.5-12.2); NRBC Per 100 WBC 0 X 10*3/uL (0.00-0.01); Platelet Count 191 X 10*3/uL (140-440); RBC 5.97 X 10*6/uL (4.40-5.60); RDW 12.5 % (11.5-14.5); WBC 10.04 X 10*3/uL (4.50-10.00)
== END | disposition home or self-care (01) ==
LOC: LABPAT 09:03
PROVIDERS: ATTEND Internal Medicine Interventional Cardiology
DX: Z01.812 Encounter for preprocedural laboratory examination (principal); I42.8 Other cardiomyopathies; I45.5 Other specified heart block; I49.5 Sick sinus syndrome
CPT/HCPCS: 80048; 85027

== ENCOUNTER 2023-11-14 02:51 | Observation (INO) | payer MEDICARE ==
[2023-11-14 05:17] LABS: Basophils # (A) 0.1 k/uL (0-0.2); Basophils % (A) 1 %; Eosinophils # (A) 0.2 k/uL (0-0.7); Eosinophils % (A) 2 %; HCT 49.4 % (39.0-53.0); HGB 16.5 gm/dL (13.0-17.5); Lymphocytes # (A) 1.6 k/uL (1.0-4.8); Lymphocytes % (A) 17 %; MCH 30.4 pg (25.0-35.0); MCHC 33.5 g/dL (31.0-37.0); MCV 90.8 fL (80.0-100.0); Mean Platelet Volume 7.3; Monocytes # (A) 0.5 k/uL (0-1.0); Monocytes % (A) 5 %; Neutrophils # (A) 6.8 k/uL (1.3-7.7); Neutrophils % (A) 74 %; Platelet Count 141 k/uL (150-450); RBC 5.44 m/uL (4.30-5.90); RDW 12.7 % (11.5-15.5); WBC 9.2 k/uL (3.8-10.6)
[2023-11-14 05:30] LABS: ALT 13 U/L (4-49); AST 29 U/L (17-59); African American GFR (CKD) >90 (>60 ml/min/1.73 sqM); Albumin 3.5 g/dL (3.5-5.0); Alkaline Phosphatase 88 U/L (38-126); Anion Gap 5 mmol/L; Blood Urea Nitrogen 23 mg/dL (9-20); Calcium 8.7 mg/dL (8.4-10.2); Carbon Dioxide 27 mmol/L (22-30); Chloride 103 mmol/L (98-107); Glucose 112 mg/dL (74-99); Magnesium 1.8 mg/dL (1.6-2.3); Non-African American GFR(CKD) 89 (>60 ml/min/1.73 sqM); Potassium 3.5 mmol/L (3.5-5.1); Sodium 135 mmol/L (137-145); Total Protein 6.1 g/dL (6.3-8.2)
[2023-11-14 05:39] LABS: Partial Thromboplastin Time 25.5 sec (22.0-30.0)
[2023-11-14 06:27] LABS: Appearance,Urine Clear (Clear); Bilirubin,Urine Negative (Negative); Blood,Urine Trace (Negative); Color,Urine Colorless; Glucose,Urine (UA) 4+ (Negative); Hyaline Casts,Urine 1 /lpf (0-2); Ketones,Urine Negative (Negative); Leukocyte Esterase,Urine Small (Negative); Nitrite,Urine Negative (Negative); Protein,Urine 1+ (Negative); RBC,Urine 5 /hpf (0-5); Specific Gravity,Urine 1.018 (1.001-1.035); Squamous Epithelial Cell,Urine 2 /hpf (0-4); Urobilinogen,Urine <2.0 mg/dL (<2.0); WBC,Urine 12 /hpf (0-5)
--- NOTE | 2023-11-14 06:50 | ED ---
Weakness HPI - General Chief complaint: Weakness Stated complaint: Weakness Time Seen by Provider: 11/14/23 03:10 Source: EMS Mode of arrival: EMS - History of Present Illness Initial comments: 68-year-old male with past medical history of Parkinson's, diabetes, A-fib who presents to the emergency department after he had a fall. Patient states that he went into the bathroom to have a bowel movement. He became extremely weak and was attempting to lean against the sink. His was attempting to help him however he ended up falling to the ground and sustaining an abrasion to his left knee. He denies hitting his head. No neck or back pain. States that he was having difficulty getting up on his own and therefore EMS had to be called. He states that he is supposed to be getting a pacemaker today by Dr. Champagne. He has a history of A-fib. He has been off of his anticoagulation for the past couple of days. He denies having any chest pain or shortness of breath throughout the episode. No fevers. He denies any loss of consciousness at any point. No abdominal pain. No other alleviating, precipitating or modifying factors - Related Data Home Medications Medication Instructions Recorded Confirmed Carbidopa-Levodopa 25-100 mg 1 tab PO QID 11/12/21 11/14/23 [Sinemet 25-100 mg] Dulaglutide [Trulicity] 1.5 mg SQ TU 11/12/21 11/14/23 Folic Acid 1 mg PO DAILY 11/12/21 11/14/23 Furosemide [Lasix] 20 mg PO QAM 11/12/21 11/14/23 Potassium Chloride ER [K-Dur 10] 10 meq PO QAM 11/12/21 11/14/23 Rosuvastatin Calcium [Crestor] 5 mg PO DAILY 11/12/21 11/14/23 metFORMIN HCL [Glucophage] 500 mg PO BID 11/12/21 11/14/23 Acetaminophen [Tylenol Arthritis] 1,300 mg PO Q8H PRN 12/15/21 11/14/23 Cholecalciferol [Vitamin D3 (25 50 mcg PO DAILY 12/15/21 11/14/23 Mcg = 1000 Iu)] Docusate [Colace] 100 mg PO BID 12/15/21 11/14/23 Linaclotide [Linzess] 145 mcg PO QAM 12/15/21 11/14/23 Empagliflozin [Jardiance] 10 mg PO QAM 03/15/23 11/14/23 carvediloL [Coreg] 12.5 mg PO BID 03/15/23 11/14/23 Insulin Glargine,Hum.rec.anlog 30 units SQ QAM 06/23/23 11/14/23 [Basaglar Tempo Pen U-100] Apixaban [Eliquis] 5 mg PO BID 11/10/23 11/14/23 Previous Rx's Medication Instructions Recorded Sacubitril/Valsartan [Entresto 49 1 each PO BID 60 Days #30 tab 11/16/23 mg-51 mg Tablet] Allergies Allergy/AdvReac Type Severity Reaction Status Date / Time latex Allergy Rash/Hives Verified 11/14/23 08:52 amantadine AdvReac constipatio Verified 11/14/23 08:52 n Review of Systems ROS Statement: Those systems with pertinent positive or pertinent negative responses have been documented in the HPI. ROS Other: All systems not noted in ROS Statement are negative. Past Medical History Past Medical History: Heart Failure, Diabetes Mellitus Additional Past Medical History / Comment(s): parkinson's disease, CONSTIPATION, PLANTAR FASCITITS, NEUROPATHY, RT BIG TOE BUNION, fluid sac on head, Dr. Champagne's H & P History of Any Multi-Drug Resistant Organisms: None Reported Past Surgical History: Heart Catheterization, Tonsillectomy Additional Past Surgical History / Comment(s): CYSTOPSCOPY-SX FOR BLOCKED URETHRA, COLONOSCOPY, BILAT CATARACTS REMOVED WITH LENS IMPLANTS Past Anesthesia/Blood Transfusion Reactions: No Reported Reaction Past Psychological History: No Psychological Hx Reported Smoking Status: Never smoker - Past Family History Mother Family Medical History: No Reported History Sister(s) Family Medical History: Cancer Additional Family Medical History / Comment(s): skin General Exam General appearance: alert, in no apparent distress Head exam: Present: atraumatic, normocephalic, normal inspection Eye exam: Present: normal appearance, PERRL, EOMI. Absent: scleral icterus, conjunctival injection, periorbital swelling ENT exam: Present: normal exam, mucous membranes moist Neck exam: Present: normal inspection. Absent: tenderness, meningismus, lymph adenopathy Respiratory exam: Present: normal lung sounds bilaterally. Absent: respiratory distress, wheezes, rales, rhonchi, stridor Cardiovascular Exam: Present: regular rate, normal rhythm, normal heart sounds. Absent: systolic murmur, diastolic murmur, rubs, gallop, clicks GI/Abdominal exam: Present: soft, normal bowel sounds. Absent: distended, tenderness, guarding, rebound, rigid Extremities exam: Present: normal inspection, full ROM, normal capillary refill. Absent: tenderness, pedal edema, joint swelling, calf tenderness Back exam: Present: normal inspection Neurological exam: Present: alert, oriented X3, CN II-XII intact Psychiatric exam: Present: normal affect, normal mood Skin exam: Present: warm, dry, normal color, abrasion (Left knee measuring 3 x 2 cm). Absent: rash Course Vital Signs 11/14/23 11/14/23 11/14/23 03:06 06:36 08:19 Temperature 98.5 F 97.4 F L Pulse Rate 87 86 Pulse Rate [ 90 Crank Hand ] Respiratory 18 18 16 Rate Blood Pressure 150/92 146/96 Blood Pressure 165/93 [Right Arm] O2 Sat by Pulse 94 L 95 95 Oximetry 11/14/23 11/14/23 09:00 10:30 Temperature Pulse Rate Pulse Rate [ Crank Hand ] Respiratory Rate Blood Pressure Blood Pressure 181/96 169/97 [Right Arm] O2 Sat by Pulse Oximetry Medical Decision Making - Medical Decision Making Was pt. sent in by a medical professional or institution (, PA, REAL ESTATE LOAN OFFICER, urgent care, hospital, or half-way...) When possible be specific @ -No Did you speak to anyone other than the patient for history (EMS, parent, family, police, friend...)? What history was obtained from this source @ -I spoke with EMS and for history Did you review nursing and triage notes (agree or disagree)? Why? @ -I reviewed and agree with nursing and triage notes Were old charts reviewed (outside hosp., previous admission, EMS record, old EKG, old radiological studies, urgent care reports/EKG's, half-way records)? Report findings @ -No old charts were reviewed Differential Diagnosis (chest pain, altered mental status, abdominal pain women, abdominal pain men, vaginal bleeding, weakness, fever, dyspnea, syncope, headache, dizziness, GI bleed, back pain, seizure, CVA, palpatations, mental health, musculoskeletal)? @ -Differential Weakness: Hypoglycemia, shock, sepsis, hyponatremia, anemia, infection, IL, ETOH, adverse medicine reaction, overdose, stroke, this is not meant to be an all-inclusive li st. EKG interpreted by me (3pts min.). @ -Yes and demonstrates sinus rhythm with a rate of 83. CO interval 241. QRS 24. QTc of 481. No acute ST segment elevations. Left bundle branch block seen on previous EKGs X-rays interpreted by me (1pt min.). @ -Yes and demonstrates no acute process CT interpreted by me (1pt min.). @ -None done U/S interpreted by me (1pt. min.). @ -None done What testing was considered but not performed or refused? (CT, X-rays, U/S, labs)? Why? @ -None What meds were considered but not given or refused? Why? @ -None Did you discuss the management of the patient with other professionals (professionals i.e. , PA, REAL ESTATE LOAN OFFICER, lab, RT, psych nurse, social work case manager, banquet pilot, teacher, marine safety officer, case management assistant)? Give summary @ -Spoke with Dr. Lopez who will observe the patient Was smoking cessation discussed for >3mins.? @ -No Was critical care preformed (if so, how long)? @ -No Were there social determinants of health that impacted care today? How? (Homelessness, low income, unemployed, alcoholism, drug addiction, transportation, low edu. Level, literacy, decrease access to med. care, senior living, rehab)? @ -No Was there de-escalation of care discussed even if they declined (Discuss DNR or withdrawal of care, Hospice)? DNR status @ -No What co-morbidities impacted this encounter? (DM, HTN, Smoking, COPD, CAD, Cancer, CVA, ARF, Chemo, Hep., AIDS, mental health diagnosis, sleep apnea, morbid obesity)? @ -A-fib Was patient admitted / discharged? Hospital course, mention meds given and route, prescriptions, significant lab abnormalities, going to OR and other pertinent info. @ -Upon arrival patient seen and evaluated in room 28. Thorough history and p hysical exam was performed. IV access was established. Laboratory studies are conducted. Chest x-ray was performed. No acute process is identified at this time. I will admit the patient for weakness, fall with planned pacemaker tomorrow. Patient was agreeable to this. Spoke with Dr. Lpoez who will admit the patient Undiagnosed new problem with uncertain prognosis? @ -Yes Drug Therapy requiring intensive monitoring for toxicity (Heparin, Nitro, Insulin, Cardizem)? @ -No Were any procedures done? @ -No Diagnosis/symptom? @ -Acute fall, generalized weakness Acute, or Chronic, or Acute on Chronic? @ -Acute Uncomplicated (without systemic symptoms) or Complicated (systemic symptoms)? @ -Complicated Side effects of treatment? @ -No Exacerbation, Progression, or Severe Exacerbation? @ -No Poses a threat to life or bodily function? How? (Chest pain, USA, IL, pneumonia, PE, COPD, DKA, ARF, appy, cholecystitis, CVA, Diverticulitis, Homicidal, Suicidal, threat to staff... and all critical care pts) @ -No - Lab Data Result diagrams: 11/16/23 11:20 11/16/23 11:20 Lab Results 11/14/23 11/14/23 11/14/23 Range/Units 04:52 04:52 04:52 WBC 9.2 (3.8-10.6) k/uL RBC 5.44 (4.30-5.90) m/uL Hgb 16.5 (13.0-17.5) gm/dL Hct 49.4 (39.0-53.0) % MCV 90.8 (80.0-100.0) fL MCH 30.4 (25.0-35.0) pg MCHC 33.5 (31.0-37.0) g/dL RDW 12.7 (11.5-15.5) % Plt Count 141 L (150-450) k/uL MPV 7.3 Neutrophils % 74 % Lymphocytes % 17 % Monocytes % 5 % Eosinophils % 2 % Basophils % 1 % Neutrophils # 6.8 (1.3-7.7) k/uL Lymphocytes # 1.6 (1.0-4.8) k/uL Monocytes # 0.5 (0-1.0) k/uL Eosinophils # 0.2 (0-0.7) k/uL Basophils # 0.1 (0-0.2) k/uL PT 11.0 (10.0-12.5) sec INR 1.0 (<1.2) APTT 25.5 (22.0-30.0) sec Sodium (137-145) mmol/L Potassium (3.5-5.1) mmol/L Chloride (98-107) mmol/L Carbon Dioxide (22-30) mmol/L Anion Gap mmol/L BUN (9-20) mg/dL Creatinine (0.66-1.25) mg/dL Est GFR (CKD-EPI)AfAm (>60 ml/min/1.73 sqM) Est GFR (CKD-EPI)NonAf (>60 ml/min/1.73 sqM) Glucose (74-99) mg/dL Plasma Lactic Acid Kuldeep (0.7-2.0) mmol/L Calcium (8.4-10.2) mg/dL Magnesium (1.6-2.3) mg/dL Total Bilirubin (0.2-1.3) mg/dL AST (17-59) U/L ALT (4-49) U/L Alkaline Phosphatase (38-126) U/L Troponin I (0.000-0.034) ng/mL Total Protein (6.3-8.2) g/dL Albumin (3.5-5.0) g/dL Urine Color Colorless Urine Appearance Clear (Clear) Urine pH 6.0 (5.0-8.0) Ur Specific Western 1.018 (1.001-1.035) Urine Protein 1+ H (Negative) Urine Glucose (UA) 4+ H (Negative) Urine Ketones Negative (Negative) Urine Blood Trace H (Negative) Urine Nitrite Negative (Negative) Urine Bilirubin Negative (Negative) Urine Urobilinogen <2.0 (<2.0) mg/dL Ur Leukocyte Esterase Small H (Negative) Urine RBC 5 (0-5) /hpf Urine WBC 12 H (0-5) /hpf Ur Squamous Epith Cells 2 (0-4) /hpf Hyaline Casts 1 (0-2) /lpf Influenza Type A (PCR) (Not Detectd) Influenza Type B (PCR) (Not Detectd) RSV (PCR) (Not Detectd) SARS-CoV-2 (PCR) (Not Detectd) 05/14/24 05/14/24 05/14/24 Range/Units 04:52 04:52 04:52 WBC (3.8-10.6) k/uL RBC (4.30-5.90) m/uL Hgb (13.0-17.5) gm/dL Hct (39.0-53.0) % MCV (80.0-100.0) fL MCH (25.0-35.0) pg MCHC (31.0-37.0) g/dL RDW (11.5-15.5) % Plt Count (150-450) k/uL MPV Neutrophils % % Lymphocytes % % Monocytes % % Eosinophils % % Basophils % % Neutrophils # (1.3-7.7) k/uL Lymphocytes # (1.0-4.8) k/uL Monocytes # (0-1.0) k/uL Eosinophils # (0-0.7) k/uL Basophils # (0-0.2) k/uL PT (10.0-12.5) sec INR (<1.2) APTT (22.0-30.0) sec Sodium 135 L (137-145) mmol/L Potassium 3.5 (3.5-5.1) mmol/L Chloride 103 (98-107) mmol/L Carbon Dioxide 27 (22-30) mmol/L Anion Gap 5 mmol/L BUN 23 H (9-20) mg/dL Creatinine 0.86 (0.66-1.25) mg/dL Est GFR (CKD-EPI)AfAm >90 (>60 ml/min/1.73 sqM) Est GFR (CKD-EPI)NonAf 89 (>60 ml/min/1.73 sqM) Glucose 112 H (74-99) mg/dL Plasma Lactic Acid Kuldeep 1.0 (0.7-2.0) mmol/L Calcium 8.7 (8.4-10.2) mg/dL Magnesium 1.8 (1.6-2.3) mg/dL Total Bilirubin 1.0 (0.2-1.3) mg/dL AST 29 (17-59) U/L ALT 13 (4-49) U/L Alkaline Phosphatase 88 (38-126) U/L Troponin I 0.038 H* (0.000-0.034) ng/mL Total Protein 6.1 L (6.3-8.2) g/dL Albumin 3.5 (3.5-5.0) g/dL Urine Color Urine Appearance (Clear) Urine pH (5.0-8.0) Ur Specific Western (1.001-1.035) Urine Protein (Negative) Urine Glucose (UA) (Negative) Urine Ketones (Negative) Urine Blood (Negative) Urine Nitrite (Negative) Urine Bilirubin (Negative) Urine Urobilinogen (<2.0) mg/dL Ur Leukocyte Esterase (Negative) Urine RBC (0-5) /hpf Urine WBC (0-5) /hpf Ur Squamous Epith Cells (0-4) /hpf Hyaline Casts (0-2) /lpf Influenza Type A (PCR) (Not Detectd) Influenza Type B (PCR) (Not Detectd) RSV (PCR) (Not Detectd) SARS-CoV-2 (PCR) (Not Detectd) 11/14/23 Range/Units 05:00 WBC (3.8-10.6) k/uL RBC (4.30-5.90) m/uL Hgb (13.0-17.5) gm/dL Hct (39.0-53.0) % MCV (80.0-100.0) fL MCH (25.0-35.0) pg MCHC (31.0-37.0) g/dL RDW (11.5-15.5) % Plt Count (150-450) k/uL MPV Neutrophils % % Lymphocytes % % Monocytes % % Eosinophils % % Basophils % % Neutrophils # (1.3-7.7) k/uL Lymphocytes # (1.0-4.8) k/uL Monocytes # (0-1.0) k/uL Eosinophils # (0-0.7) k/uL Basophils # (0-0.2) k/uL PT (10.0-12.5) sec INR (<1.2) APTT (22.0-30.0) sec Sodium (137-145) mmol/L Potassium (3.5-5.1) mmol/L Chloride (98-107) mmol/L Carbon Dioxide (22-30) mmol/L Anion Gap mmol/L BUN (9-20) mg/dL Creatinine (0.66-1.25) mg/dL Est GFR (CKD-EPI)AfAm (>60 ml/min/1.73 sqM) Est GFR (CKD-EPI)NonAf (>60 ml/min/1.73 sqM) Glucose (74-99) mg/dL Plasma Lactic Acid Kuldeep (0.7-2.0) mmol/L Calcium (8.4-10.2) mg/dL Magnesium (1.6-2.3) mg/dL Total Bilirubin (0.2-1.3) mg/dL AST (17-59) U/L ALT (4-49) U/L Alkaline Phosphatase (38-126) U/L Troponin I (0.000-0.034) ng/mL Total Protein (6.3-8.2) g/dL Albumin (3.5-5.0) g/dL Urine Color Urine Appearance (Clear) Urine pH (5.0-8.0) Ur Specific Western (1.001-1.035) Urine Protein (Negative) Urine Glucose (UA) (Negative) Urine Ketones (Negative) Urine Blood (Negative) Urine Nitrite (Negative) Urine Bilirubin (Negative) Urine Urobilinogen (<2.0) mg/dL Ur Leukocyte Esterase (Negative) Urine RBC (0-5) /hpf Urine WBC (0-5) /hpf Ur Squamous Epith Cells (0-4) /hpf Hyaline Casts (0-2) /lpf Influenza Type A (PCR) Not Detected (Not Detectd) Influenza Type B (PCR) Not Detected (Not Detectd) RSV (PCR) Not Detected (Not Detectd) SARS-CoV-2 (PCR) Not Detected (Not Detectd) Disposition Clinical Impression: Fall, Elevated troponin Disposition: ADMITTED IP TO THIS HOSP Condition: Stable Is patient prescribed a controlled substance at d/c from ED?: No Time of Disposition: 07:15 Decision to Admit Reason: Admit from EC Decision Date: 11/14/23 Decision Time: 07:15
[2023-11-14] MEDS ORDERED: NALOXONE 0.4 MG/ML 1 ML VIAL IV PRN (07:15)
--- NOTE | 2023-11-14 07:40 | XR ---
EXAMINATION TYPE: XR chest 2V DATE OF EXAM: 11/14/2023 COMPARISON: 03/15/2023 HISTORY: 68-year-old male with weakness TECHNIQUE: AP and lateral views FINDINGS: Heart borderline in size. Redemonstrated widened superior mediastinum which was noted to be secondary to an ascending aortic aneurysm up to 4.5 cm on 03/15/2023. 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 A large central main pulmon flor arteries on that exam not well demonstrated radiographically. No consolidation or pleural effusio n. 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 No acute cardiopulm onary process.
[2023-11-14] MEDS: amLODIPine 5 MG TAB PO STA (09:09)
[2023-11-14] MEDS: ACETAMINOPHEN TAB 325 MG TAB PO PRN (09:09)
--- NOTE | 2023-11-14 09:48 | P.HPIM ---
History of Present Illness H&P Date: 11/14/23 This is a 68-year-old male patient who presented to ER with concerns of fall. Patient reports that he was going to the bathroom when he became lightheaded and weak. Patient denies loss of consciousness. Patient has a history of first- degree AV block with plans to get pacemaker placement per Dr. Robert. 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 Patient reports he has been off of anticoagulation over the past few days in anticipation of pacemaker placement surgery.At this time patient denies chest pain or shortness breath. Patient denies nausea vomiting or diarrhea. Patient denies any urinary burning or frequency. Patient will be admitted and cardiology services will be consulted Review of Systems Please refer to HPI otherwise unremarkable Past Medical History Past Medical History: Heart Failure, Diabetes Mellitus Additional Past Medical History / Comment(s): parkinson's disease, CONSTIPATION, PLANTAR FASCITITS, NEUROPATHY, RT BIG TOE BUNION, fluid sac on head, Dr. Champagne's H & P History of Any Multi-Drug Resistant Organisms: None Reported Past Surgical History: Heart Catheterization, Tonsillectomy Additional Past Surgical History / Comment(s): CYSTOPSCOPY-SX FOR BLOCKED URETHRA, COLONOSCOPY, BILAT CATARACTS REMOVED WITH LENS IMPLANTS Past Anesthesia/Blood Transfusion Reactions: No Reported Reaction Past Psychological History: No Psychological Hx Reported Smoking Status: Never smoker - Past Family History Mother Family Medical History: No Reported History Sister(s) Family Medical History: Cancer Additional Family Medical History / Comment(s): skin Medications and Allergies Home Medications Medication Instructions Recorded Confirmed Type Carbidopa-Levodopa 25-100 mg 1 tab PO QID 11/12/21 11/14/23 History [Sinemet 25-100] Dulaglutide [Trulicity] 1.5 mg SQ TU 11/12/21 11/14/23 History Folic Acid 1 mg PO DAILY 11/12/21 11/14/23 History Furosemide [Lasix] 20 mg PO QAM 11/12/21 11/14/23 History Potassium Chloride ER [K-Dur 10] 10 meq PO QAM 11/12/21 11/14/23 History Rosuvastatin Calcium [Crestor] 5 mg PO DAILY 11/12/21 11/14/23 History metFORMIN HCL [Glucophage] 500 mg PO BID 11/12/21 11/14/23 History Acetaminophen [Tylenol Arthritis] 1,300 mg PO Q8H PRN 12/15/21 11/14/23 History Cholecalciferol [Vitamin D3 (25 50 mcg PO DAILY 12/15/21 11/14/23 History Mcg = 1000 Iu)] Docusate [Colace] 100 mg PO BID 12/15/21 11/14/23 History Linaclotide [Linzess] 145 mcg PO QAM 12/15/21 11/14/23 History Empagliflozin [Jardiance] 10 mg PO QAM 03/15/23 11/14/23 History carvediloL [Coreg] 12.5 mg PO BID 03/15/23 11/14/23 History Insulin Glargine,Hum.rec.anlog 30 units SQ QAM 06/23/23 11/14/23 History [Basaglar Tempo Pen U-100] Apixaban [Eliquis] 5 mg PO BID 11/10/23 11/14/23 History Sacubitril/Valsartan [Entresto 97 1 tab PO BID 11/10/23 11/14/23 History mg-103 mg Tablet] Allergies Allergy/AdvReac Type Severity Reaction Status Date / Time latex Allergy Rash/Hives Verified 11/14/23 08:52 amantadine AdvReac constipatio Verified 11/14/23 08:52 n Physical Exam Vitals: Vital Signs Temp Pulse Pulse Resp BP BP Pulse Ox 11/14/23 09:00 181/96 11/14/23 08:19 97.4 F L 90 16 165/93 95 11/14/23 06:36 86 18 146/96 95 11/14/23 03:06 98.5 F 87 18 150/92 94 L Intake and Output 11/13/23 11/14/23 11/14/23 22:59 06:59 14:59 Other: Weight 111.13 kg Head normocephalic Neck supple Lungs clear to auscultation bilaterally no wheezing or crackles Heart regular rate and rhythm S1-S2, no rub or gallop Abdomen is soft nontender nondistended positive bowel sounds no hepatosplenom egaly Extremities no edema Neuro alert and orientated to 3 Results CBC & Chem 7: 11/14/23 04:52 11/14/23 04:52 Labs: Abnormal Lab Results - Last 24 Hours (Table) 11/14/23 11/14/23 11/14/23 Range/Units 04:52 04:52 04:52 Plt Count 141 L (150-450) k/uL Sodium 135 L (137-145) mmol/L BUN 23 H (9-20) mg/dL Glucose 112 H (74-99) mg/dL Troponin I (0.000-0.034) ng/mL Total Protein 6.1 L (6.3-8.2) g/dL Urine Protein 1+ H (Negative) Urine Glucose (UA) 4+ H (Negative) Urine Blood Trace H (Negative) Ur Leukocyte Esterase Small H (Negative) Urine WBC 12 H (0-5) /hpf 11/14/23 Range/Units 04:52 Plt Count (150-450) k/uL Sodium (137-145) mmol/L BUN (9-20) mg/dL Glucose (74-99) mg/dL Troponin I 0.038 H* (0.000-0.034) ng/mL Total Protein (6.3-8.2) g/dL Urine Protein (Negative) Urine Glucose (UA) (Negative) Urine Blood (Negative) Ur Leukocyte Esterase (Negative) Urine WBC (0-5) /hpf Assessment and Plan Assessment: 1. Fall without loss of consciousness 2. Elevated troponin 3. History of first-degree AV block with plans to receive pacemaker placement for cardiology 4. History of atrial fibrillation. 5. History of ischemic cardiomyopathy 6. History of systolic congestive heart failure 7. History of diabetes mellitus 8. History of Parkinson's disease 9. History of hyperlipidemia 10. AAA seen on chest x-ray At this time patient will be admitted Cardiology services will be consulted Repeat labs ordered Time with Patient: Greater than 30 (Greater than 60% of the total time spent in counseling and coordination of care)
--- NOTE | 2023-11-14 10:05 | P.CRDCN ---
History of Present Illness History of present illness: HISTORY OF PRESENT ILLNESS: This is a 68-year-old male with a past medical history significant for mild CAD, cardiomyopathy, sick sinus syndrome, atrial fibrillation, hypertension, hyperl ipidemia, diabetes. Patient follows in the office with Dr. Rush. We have been asked to see the patient in consultation for elevated troponins. Patient examined at the bedside in the emergency room. Patient states he was ambulating to the bathroom with a walker. He states that he got into the bathroom and had significant diarrhea. He began to feel lightheaded. He denies having any loss of consciousness. Patient denies any chest pain or pressure. He denies any shortness of breath. The patient was scheduled to undergo dual-chamber pacemaker implantation today conduction system pacing with Dr. Champagne. Does report he has been holding his Eliquis due to his scheduled pacemaker implantat ion. Patient denies any injury yesterday while in the restroom. He denies any fever or chills. Denies having a cough. Patient is afebrile during hospitalization. His white count is normal. DIAGNOSTICS: - EKG reveals sinus mechanism with left bundle branch block. Heart rate 83.. 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 No acute cardiopulmonary process. - Laboratory data: WBC 9.2. Hemoglobin 16.5. Platelet count 141. Sodium 135. Potassium 3.5. BUN 23. Creatinine 0.83. Magnesium 1.8. Troponin 0.038. - Current home cardiac medications include Entresto 97-103 mg twice a day, carvedilol 12.5 mg twice a day, Eliquis 5 mg twice a day, rosuvastatin 5 mg daily, Lasix 20 mg daily, Jardiance 10 mg daily - Most recent echocardiogram obtained in thousand 23 revealing EF 47%, moderate AR, bicuspid AV, mild MR, mild TR - Cardiac catheterization history: December 2022 revealing mild CAD REVIEW OF SYSTEMS: At the time of my exam: CONSTITUTIONAL: Denies fever or chills. HEENT: Denies blurred vision, vision changes, or eye pain. Denies hemoptysis CARDIOVASCULAR: Denies chest pain. Denies orthopnea. Denies PND. Denies palpitations RESPIRATORY: Denies shortness of breath. GASTROINTESTINAL: Denies abdominal pain. Denies nausea or vomiting. HEMATOLOGIC: Denies bleeding disorders. GENITOURINARY: Denies any blood in urine. SKIN: Denies pruitis. Denies rash. PHYSICAL EXAM: VITAL SIGNS: Reviewed. GENERAL: Well-developed in no acute distress. HEENT: Head is normocephalic. Pupils are equal, round. Sclerae anicteric. Mucous membranes of the mouth are moist. Neck supple. No JVD or thyromegaly LUNGS: Respirations even and unlabored. Lungs essentially clear to auscultation bilaterally. HEART: Regular rate and rhythm. S1 and S2 heard. Systolic and diastolic murmur noted. ABDOMEN: Soft. Nondistended. Nontender. EXTREMITIES: Normal range of motion. No clubbing or cyanosis. Peripheral pulses intact. No lower extremity edema NEUROLOGIC: Awake and alert. Oriented x 3. ASSESSMENT: Lightheadedness without loss of consciousness Minimally elevated troponin of unclear significance, ACS ruled out Sick sinus syndrome Left bundle branch block Nonischemic cardiomyopathy Mild CAD per cardiac catheterization December 2022 Valvular heart disease Bicuspid aortic valve Paroxysmal atrial fibrillation Ascending aortic aneurysm Hypertension Hyperlipidemia Diabetes PLAN: An acute coronary event has been ruled out Continue home cardiac medications Hold Eliquis Patient scheduled dual-chamber pacemaker implantation with conduction system pacing today with Dr. Champagne Further recommendations pending patient course Nurse practitioner note has been reviewed by physician. Signing provider agrees with the documented findings, assessment, and plan of care documented by BARREL ENDSHAKER ADJUSTER as a scribe. Past Medical History Past Medical History: Heart Failure, Diabetes Mellitus Additional Past Medical History / Comment(s): parkinson's disease, CONSTIPATION, PLANTAR FASCITITS, NEUROPATHY, RT BIG TOE BUNION, fluid sac on head, Dr. Champagne's H & P History of Any Multi-Drug Resistant Organisms: None Reported Past Surgical History: Heart Catheterization, Tonsillectomy Additional Past Surgical History / Comment(s): CYSTOPSCOPY-SX FOR BLOCKED URETHRA, COLONOSCOPY, BILAT CATARACTS REMOVED WITH LENS IMPLANTS Past Anesthesia/Blood Transfusion Reactions: No Reported Reaction Past Psychological History: No Psychological Hx Reported Smoking Status: Never smoker - Past Family History Mother Family Medical History: No Reported History Sister(s) Family Medical History: Cancer Additional Family Medical History / Comment(s): skin Medications and Allergies Home Medications Medication Instructions Recorded Confirmed Type Carbidopa-Levodopa 25-100 mg 1 tab PO QID 11/12/21 11/14/23 History [Sinemet 25-100] Dulaglutide [Trulicity] 1.5 mg SQ TU 11/12/21 11/14/23 History Folic Acid 1 mg PO DAILY 11/12/21 11/14/23 History Furosemide [Lasix] 20 mg PO QAM 11/12/21 11/14/23 History Potassium Chloride ER [K-Dur 10] 10 meq PO QAM 11/12/21 11/14/23 History Rosuvastatin Calcium [Crestor] 5 mg PO DAILY 11/12/21 11/14/23 History metFORMIN HCL [Glucophage] 500 mg PO BID 11/12/21 11/14/23 History Acetaminophen [Tylenol Arthritis] 1,300 mg PO Q8H PRN 12/15/21 11/14/23 History Cholecalciferol [Vitamin D3 (25 50 mcg PO DAILY 12/15/21 11/14/23 History Mcg = 1000 Iu)] Docusate [Colace] 100 mg PO BID 12/15/21 11/14/23 History Linaclotide [Linzess] 145 mcg PO QAM 12/15/21 11/14/23 History Empagliflozin [Jardiance] 10 mg PO QAM 03/15/23 11/14/23 History carvediloL [Coreg] 12.5 mg PO BID 03/15/23 11/14/23 History Insulin Glargine,Hum.rec.anlog 30 units SQ QAM 06/23/23 11/14/23 History [Basaglar Tempo Pen U-100] Apixaban [Eliquis] 5 mg PO BID 11/10/23 11/14/23 History Sacubitril/Valsartan [Entresto 97 1 tab PO BID 11/10/23 11/14/23 History mg-103 mg Tablet] Allergies Allergy/AdvReac Type Severity Reaction Status Date / Time latex Allergy Rash/Hives Verified 11/14/23 08:52 amantadine AdvReac constipatio Verified 11/14/23 08:52 n Physical Exam Vitals: Vital Signs Temp Pulse Pulse Resp BP BP Pulse Ox 11/14/23 09:00 181/96 11/14/23 08:19 97.4 F L 90 16 165/93 95 11/14/23 06:36 86 18 146/96 95 11/14/23 03:06 98.5 F 87 18 150/92 94 L Intake and Output 11/13/23 11/14/23 11/14/23 22:59 06:59 14:59 Other: Weight 111.13 kg Results 11/14/23 04:52 11/14/23 04:52 Cardiac Enzymes 11/14/23 11/14/23 Range/Units 04:52 04:52 AST 29 (17-59) U/L Troponin I 0.038 H* (0.000-0.034) ng/mL Coagulation 11/14/23 Range/Units 04:52 PT 11.0 (10.0-12.5) sec APTT 25.5 (22.0-30.0) sec CBC 11/14/23 Range/Units 04:52 WBC 9.2 (3.8-10.6) k/uL RBC 5.44 (4.30-5.90) m/uL Hgb 16.5 (13.0-17.5) gm/dL Hct 49.4 (39.0-53.0) % Plt Count 141 L (150-450) k/uL Comprehensive Metabolic Panel 11/14/23 Range/Units 04:52 Sodium 135 L (137-145) mmol/L Potassium 3.5 (3.5-5.1) mmol/L Chloride 103 (98-107) mmol/L Carbon Dioxide 27 (22-30) mmol/L BUN 23 H (9-20) mg/dL Creatinine 0.86 (0.66-1.25) mg/dL Glucose 112 H (74-99) mg/dL Calcium 8.7 (8.4-10.2) mg/dL AST 29 (17-59) U/L ALT 13 (4-49) U/L Alkaline Phosphatase 88 (38-126) U/L Total Protein 6.1 L (6.3-8.2) g/dL Albumin 3.5 (3.5-5.0) g/dL Current Medications Generic Name Dose Route Start Last Admin Trade Name Freq PRN Reason Stop Dose Admin Acetaminophen 650 mg 11/14/23 08:46 11/14/23 09:09 Acetaminophen Tab 325 Mg Tab PO 650 mg Q6HR PRN Administration Fever and/ or Pain Naloxone HCl 0.2 mg 11/14/23 07:15 Naloxone 0.4 Mg/Ml 1 Ml Vial IV Q2M PRN Opioid Reversal Intake and Output 11/13/23 11/14/23 11/14/23 22:59 06:59 14:59 Other: Weight 111.13 kg 11/14/23 04:52 11/14/23 04:52
[2023-11-14 11:48] LABS: Glucose,Whole Blood 109 mg/dL (70-110)
[2023-11-14] MEDS: SODIUM CHLORIDE 0.9% 1,000 ML IV SCH ×2 (13:54→21:07)
[2023-11-14] MEDS ORDERED: LIDOCAINE 1% INJ 10MG/ML (20 ML MDV) ONE (15:32)
[2023-11-14] MEDS ORDERED: MIDAZOLAM 2 MG/2 ML VIAL ONE (15:46)
[2023-11-14] MEDS: IV FLUID CONTINUATION 950 ML IV ONE (15:46)
[2023-11-14] MEDS ORDERED: fentaNYL (PF) 50 MCG/ML 2 ML AMP ONE (15:46)
[2023-11-14] MEDS ORDERED: hydrALAZINE HCL 20 MG/ML 1 ML VIAL ONE (15:46)
[2023-11-14] MEDS: IOPAMIDOL-370 100ML BTL INJ ONE (16:05)
[2023-11-14] MEDS: LIDOCAINE 1% INJ 10MG/ML (20 ML MDV) SQ ONE (16:28)
[2023-11-14] MEDS: ceFAZolin 1 GM in SODIUM CHLORIDE 0.9% IRRIG BTL 250 ML IRRIGATION PRN (18:04)
[2023-11-14] MEDS ORDERED: ACETAMINOPHEN TAB 325 MG TAB PO PRN (18:18)
--- NOTE | 2023-11-14 18:26 | P.EPPROC ---
- EP Procedure Note Electrophysiology Procedure Note: Diagnosis Symptomatic bradycardia, unprovoked, no triggering factors Sick sinus syndrome as well as paroxysmal AV block, symptomatic recurrent syncope Procedure Dual-chamber pacemaker implantation with conduction system pacing (left bundle pacing) Left upper extremity venogram Details Patient was brought to the EP lab in a fasting state. Written informed consent was obtained prior to the procedure. Conscious sedation provided by AREA OPERATIONS MANAGER. IV antibiotics administered. Local anesthesia administered. A 4 cm incision made in the pectoral area. Subfascial pocket made. Venous accesses obtained Venous sheaths placed. Leads placed in the right heart. 2 sets of pacing cables were used; one for backup temporary pacing and the other for assessment of current of injury and signal analysis. A 52 cm atrial pacing lead was first positioned in the RV apex for temporary pacing during mapping and conduction system pacing Thresholds were interrogated and backup high output pacing was provided This atrial lead was then removed from the right ventricle and later positioned in the right atrial appendage and the permanent lead A deflected sheath was prepped. A coronary sinus decapolar catheter was placed within this sheath. The catheter along with the sheath was then passed into the right heart, the catheter was prolapsed across the tricuspid valve, into the right ventricle and then further into the right ventricular outflow tract across the pulmonic valve into the pulmonary artery. This sheath was slid over this decapolar catheter into the RVOT. Thereafter the catheter last sheath assembly was withdrawn from the RVOT along the septum to the mid septal area. The sheath was appropriately to to map the right ventricular aspect of the septum. The decapolar catheter was withdrawn, the sheath flushed again and the screw-in pacing lead placed within the sheath. Further detailed unipolar pace-mapping of the septum was performed and once the appropriate based morphology was obtained on lead V1, the lead was screwed into the septum. The lead was screwed in 4-5 returns at a time while monitoring the current of injury, the pacing impedance changes and the paced QRS morphology. The stimulus to peak of V6 QRS was measured at each step. Once a QR or rSR pattern of paced QRS in lead V1 was obtained, a left bundle signal was sought. Impedance was measured and thresholds were measured. An impedance drop of 100-200 ohms but above 550 ohms was targeted along with an unchanged vector of the current of injury signal. The final positioning was based on the QRS morphology in lead V1 and a short stimulus to peak of the V6 QRS of less than 90 ms. The sheath was withdrawn, stability of the pacing lead deep in the septum was confirmed on [place] views and the sheath was slipped and an adequate heel was provided for the lead. Unipolar and bipolar electrogram morphology obtained Atrial lead positioned in the right atrial appendage. 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 RV was enlarged. Multiple sites were interrogated on the RV septum before final positioning of the left bundle lead Large left atrium
--- NOTE | 2023-11-14 18:27 | P.PN ---
Progress Note - Text Successful dual-chamber pacemaker implantation with conduction system pacing for sick sinus syndrome, postconversion pauses and paroxysmal AV block Resume anticoagulation other cardiac medications
[2023-11-14] MEDS: ACETAMINOPHEN IV (For NPO) 1,000 MG in EMPTY BAG 1 BAG IVPB ONE (19:56)
[2023-11-14 20:28] LABS: Glucose,Whole Blood 154 mg/dL (70-110)
[2023-11-14] MEDS: carvediloL 12.5 MG TAB PO SCH (21:06)
[2023-11-14] MEDS: APIXABAN 5 MG TAB PO SCH (21:07)
[2023-11-14 22:09] LABS: Glucose,Whole Blood 145 mg/dL (70-110)
[2023-11-15 05:59] LABS: Glucose,Whole Blood 116 mg/dL (70-110)
--- NOTE | 2023-11-15 08:13 | XR ---
EXAMINATION TYPE: XR chest 2V DATE OF EXAM: 11/15/2023 7:58 AM CLINICAL INDICATION:Male, 68 years old with history of Lead placement check; COMPARISON: Chest radiographs from 11/14/2023. TECHNIQUE: XR chest 2V Frontal and lateral views of the chest. FINDINGS: Lungs/Pleura: There is no evidence of pleural effusion, focal consolidation, or pneumothorax. Pulmonary vascularity: Unremarkable. Heart/mediastinum: Cardiomediastinal silhouette is unremarkable. Two lead cardiac conduction device o verlying the left hemithorax with lead tips projecting over the right ventricle and right atrium. Musculoskeletal: No acute osseous pathology. IMPRESSION: No acute cardiopulmonary disease/process.
[2023-11-15] MEDS: Linaclotide [Linzess] 145 MCG Capsule PO SCH (08:54)
[2023-11-15] MEDS: DOCUSATE 100 MG CAP PO SCH (08:57)
[2023-11-15] MEDS: ATORVASTATIN 10 MG TAB PO SCH (08:57)
[2023-11-15] MEDS: FUROSEMIDE 20 MG TAB PO SCH (08:57)
[2023-11-15] MEDS: CARBIDOPA-LEVODOPA 25-100 MG 1 EACH TAB PO SCH (08:58)
[2023-11-15] MEDS: CHOLECALCIFEROL 25 MCG (1000 IU) TABLET PO SCH (08:58)
--- NOTE | 2023-11-15 10:17 | P.PN ---
Subjective Progress Note Date: 11/15/23 This is a 68-year-old male patient who presented to ER with concerns of fall. Patient reports that he was going to the bathroom when he became lightheaded and weak. Patient denies loss of consciousness. Patient has a history of first- degree AV block with plans to get pacemaker placement per Dr. Robert. 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 Patient reports he has been off of anticoagulation over the past few days in anticipation of pacemaker placement surgery.At this time patient denies chest pain or shortness breath. Patient denies nausea vomiting or diarrhea. Patient denies any urinary burning or frequency. Patient will be admitted and cardiology services will be consulted On 11/15/2023 patient alert and oriented 3. Patient underwentDual chamber pacemaker implantation yesterday. This time patient is resting comfortably in bed. Patient deniesChest pain or shortness of breath. Patient denies nausea vomiting or diarrhea. Patient denies any urinary burning or frequency. Current vital signs temp 97.7, heart rate 85, respiratory rate 18, blood pressure 167/87 with a pulse ox of 96% on room air. Objective - Vital Signs Vital signs: Vital Signs Temp 97.7 F 11/15/23 08:00 Pulse 85 11/15/23 08:00 Resp 18 11/15/23 08:00 BP 167/87 11/15/23 08:00 Pulse Ox 96 11/15/23 08:00 FiO2 Intake & Output 11/14/23 11/15/23 11/15/23 18:59 06:59 18:59 Intake Total 200 150 Output Total 400 300 Balance -200 -150 Weight 111.1 kg 111.1 kg Intake: IV 200 50 Sodium Chloride 0.9% 1, 50 000 ml @ 50 mls/hr IV . Q20H [facility] Rx#:[id number] Intake, IV Titration 100 Amount ACETAMINOPHEN IV (For NPO 100 ) 1,000 mg In Empty Bag 1 bag @ 400 mls/hr IVPB ONCE ONE Rx#:[id number] Output: Urine 400 300 Other: Voiding Method External Catheter # Voids 1 # Bowel Movements 0 - Exam Head normocephalic Neck supple Lungs clear to auscultation bilaterally no wheezing or crackles Heart regular rate and rhythm S1-S2, no rub or gallop Abdomen is soft nontender nondistended positive bowel sounds no hepatosplenomegaly Extremities no edema Neuro alert and orientated to 3 - Labs CBC & Chem 7: 11/14/23 04:52 11/14/23 04:52 Labs: Abnormal Lab Results - Last 24 Hours (Table) 11/14/23 11/14/23 11/15/23 Range/Units 20:26 21:58 05:47 POC Glucose (mg/dL) 154 H 145 H 116 H (70-110) mg/dL Assessment and Plan Assessment: 1. Fall without loss of consciousness 2. Elevated troponin. An acute coronary event has been ruled out 3. History of first-degree AV block with plans to receive pacemaker placement for cardiology. Status post dual-chamber pacemaker implantation on 11/14/2023 4. History of atrial fibrillation. 5. History of ischemic cardiomyopathy 6. History of systolic congestive heart failure 7. History of diabetes mellitus 8. History of Parkinson's disease 9. History of hyperlipidemia 10. AAA seen on chest x-ray. Vascular surgery consulted At this time patient will be admitted Cardiology services will be consulted Repeat labs ordered
[2023-11-15 11:12] LABS: Glucose,Whole Blood 321 mg/dL (70-110)
[2023-11-15 11:22] LABS: Basophils % (A) 0 %; Eosinophils # (A) 0.1 k/uL (0-0.7); Eosinophils % (A) 1 %; HCT 51.6 % (39.0-53.0); HGB 17.1 gm/dL (13.0-17.5); Lymphocytes # (A) 0.8 k/uL (1.0-4.8); Lymphocytes % (A) 9 %; MCH 30.9 pg (25.0-35.0); MCHC 33.2 g/dL (31.0-37.0); MCV 92.9 fL (80.0-100.0); Mean Platelet Volume 7.7; Monocytes # (A) 0.5 k/uL (0-1.0); Monocytes % (A) 6 %; Neutrophils # (A) 7.9 k/uL (1.3-7.7); Neutrophils % (A) 83 %; Platelet Count 125 k/uL (150-450); RBC 5.55 m/uL (4.30-5.90); RDW 13.2 % (11.5-15.5); WBC 9.5 k/uL (3.8-10.6)
[2023-11-15 11:45] LABS: African American GFR (CKD) >90 (>60 ml/min/1.73 sqM); Anion Gap 8 mmol/L; Blood Urea Nitrogen 21 mg/dL (9-20); Calcium 8.6 mg/dL (8.4-10.2); Carbon Dioxide 25 mmol/L (22-30); Chloride 103 mmol/L (98-107); Glucose 270 mg/dL (74-99); Non-African American GFR(CKD) 88 (>60 ml/min/1.73 sqM); Potassium 3.8 mmol/L (3.5-5.1); Sodium 136 mmol/L (137-145)
--- NOTE | 2023-11-15 11:58 | P.PN ---
Subjective HISTORY OF PRESENT ILLNESS: This is a 68-year-old male with a past medical history significant for mild CAD, cardiomyopathy, sick sinus syndrome, atrial fibrillation, hypertension, hyperlipidemia, diabetes. Patient follows in the office with Dr. Rush. We have been asked to see the patient in consultation for elevated troponins. Patient examined at the bedside in the emergency room. Patient states he was ambulating to the bathroom with a walker. He states that he got into the bathroom and had significant diarrhea. He began to feel lightheaded. He denies having any loss of consciousness. Patient denies any chest pain or pressure. He denies any shortness of breath. The patient was scheduled to undergo dual-chamber pacemaker implantation today conduction system pacing with Dr. Champagne. Does report he has been holding his Eliquis due to his scheduled pacemaker implantation. Patient denies any injury yesterday while in the restroom. He denies any fever or chills. Denies having a cough. Patient is afebrile during hospitalization. His white count is normal. DIAGNOSTICS: - EKG reveals sinus mechanism with left bundle branch block. Heart rate 83.. 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 No acute cardiopulmonary process. - Laboratory data: WBC 9.2. Hemoglobin 16.5. Platelet count 141. Sodium 135. Potassium 3.5. BUN 23. Creatinine 0.83. Magnesium 1.8. Troponin 0.038. - Current home cardiac medications include Entresto 97-103 mg twice a day, carvedilol 12.5 mg twice a day, Eliquis 5 mg twice a day, rosuvastatin 5 mg daily, Lasix 20 mg daily, Jardiance 10 mg daily - Most recent echocardiogram obtained in thousand 23 revealing EF 47%, moderate AR, bicuspid AV, mild MR, mild TR - Cardiac catheterization history: December 2022 revealing mild CAD 11/15/2023 Patient is status post dual-chamber pacemaker implantation with conduction system pacing yesterday by Dr. Champagne. Patient examined this morning at the bedside. Patient denies chest pain or pressure. He denies shortness of breath. Patient's Eliquis has been resumed. Postprocedural x-ray completed with 2-lead cardiac conduction device overlying the left hemothorax with lead tips projecting over the right ventricle and right atrium. No pneumothorax noted. Patient's device was interrogated this morning by the [employer] rep and is functioning appropriately. PHYSICAL EXAM: VITAL SIGNS: Reviewed. GENERAL: Well-developed in no acute distress. HEENT: Head is normocephalic. Pupils are equal, round. Sclerae anicteric. Mucous membranes of the mouth are moist. Neck supple. No JVD or thyromegaly LUNGS: Respirations even and unlabored. Lungs essentially clear to auscultation bilaterally. HEART: Regular rate and rhythm. S1 and S2 heard. Systolic and diastolic murmur noted. ABDOMEN: Soft. Nondistended. Nontender. EXTREMITIES: Normal range of motion. No clubbing or cyanosis. Peripheral pulses intact. No lower extremity edema NEUROLOGIC: Awake and alert. Oriented x 3. ASSESSMENT: Lightheadedness without loss of consciousness Minimally elevated troponin of unclear significance, ACS ruled out Sick sinus syndrome, status post dual-chamber pacemaker implantation with conduction system pacing Left bundle branch block Nonischemic cardiomyopathy Mild CAD per cardiac catheterization December 2022 Valvular heart disease Bicuspid aortic valve Paroxysmal atrial fibrillation Ascending aortic aneurysm Hypertension Hyperlipidemia Diabetes PLAN: Continue current cardiac medications Patient's Eliquis has been resumed Patient is stable for discharge home today from a cardiac standpoint He is to follow-up postdischarge in the office with Dr. Rush Nurse practitioner note has been reviewed by physician. Signing provider agrees with the documented findings, assessment, and plan of care documented by AUTOMOBILE SPRING REPAIRER as a scribe. Objective - Vital Signs Vital signs: Vital Signs Temp 97.7 F 11/15/23 04:00 Pulse 81 11/15/23 04:00 Resp 18 11/15/23 04:00 BP 155/78 11/15/23 04:00 Pulse Ox 93 L 11/15/23 04:00 FiO2 Intake & Output 11/14/23 11/15/23 11/15/23 18:59 06:59 18:59 Intake Total 200 150 Output Total 400 300 Balance -200 -150 Weight 111.1 kg 111.1 kg Intake: IV 200 50 Sodium Chloride 0.9% 1, 50 000 ml @ 50 mls/hr IV . Q20H [facility] Rx#:[id number] Intake, IV Titration 100 Amount ACETAMINOPHEN IV (For NPO 100 ) 1,000 mg In Empty Bag 1 bag @ 400 mls/hr IVPB ONCE ONE Rx#:[id number] Output: Urine 400 300 Other: Voiding Method External Catheter # Voids 1 # Bowel Movements 0 - Labs CBC & Chem 7: 11/15/23 10:23 11/15/23 10:23 Labs: Abnormal Lab Results - Last 24 Hours (Table) 11/14/23 11/14/23 11/15/23 Range/Units 20:26 21:58 05:47 POC Glucose (mg/dL) 154 H 145 H 116 H (70-110) mg/dL
--- NOTE | 2023-11-15 12:18 | P.PN ---
Subjective Progress Note Date: 11/15/23 Principal diagnosis: Weakness, fall This is a pleasant 68-year-old male with a history of atrial fibrillation, coronary artery disease, cardiomyopathy, sick sinus syndrome, hypertension, hyperlipidemia and diabetes. Patient came in after he was feeling weak and lightheaded and then had collapsed on the bathroom floor. He underwent dual- chamber pacemaker implantation yesterday. When patient was admitted he had a chest x-ray that had reported ascending aortic aneurysm. Primary medical team consulted vascular surgery for further evaluation. Patient currently denies any shortness of breath, chest pain, abdominal pain, nausea or vomiting. He did have a prior chest CT angiogram 03/15/2023 that reported no acute pulmonary process with an ascending thoracic aortic aneurysm measuring 4.5 cm. Patient and states that they were aware as patient's states that she does recall reviewing the report back in March. She states she was not referred to any specialist. Objective - Vital Signs Vital signs: Vital Signs Temp 97.7 F 11/15/23 08:00 Pulse 85 11/15/23 08:00 Resp 18 11/15/23 08:00 BP 167/87 11/15/23 08:00 Pulse Ox 96 11/15/23 08:00 FiO2 Intake & Output 11/14/23 11/15/23 11/15/23 18:59 06:59 18:59 Intake Total 200 150 110 Output Total 400 300 Balance -200 -150 110 Weight 111.1 kg 111.1 kg Intake: IV 200 50 Sodium Chloride 0.9% 1, 50 000 ml @ 50 mls/hr IV . [facility] Rx#:[id number] Intake, IV Titration 100 Amount ACETAMINOPHEN IV (For NPO 100 ) 1,000 mg In Empty Bag 1 bag @ 400 mls/hr IVPB ONCE ONE Rx#:[id number] Oral 110 Output: Urine 400 300 Other: Voiding Method External Catheter # Voids 1 # Bowel Movements 0 - Exam General appearance: The patient is alert, oriented, appears in no acute distress. HET: Head is normocephalic and atraumatic. Pupils are equal and reactive. Neck: Supple. Heart: Regular. Lungs: Equal expansion, normal respiratory effort. Abdomen: Soft, nontender, nondistended. Extremities: Normal skin color and turgor. Palpable radial pulses. Left arm in a sling. Neurological: No focal deficits. Strength and sensation are grossly intact. - Labs CBC & Chem 7: 11/15/23 10:23 11/15/23 10:23 Labs: Abnormal Lab Results - Last 24 Hours (Table) 11/14/23 11/14/23 11/15/23 Range/Units 20:26 21:58 05:47 Plt Count (150-450) k/uL Neutrophils # (1.3-7.7) k/uL Lymphocytes # (1.0-4.8) k/uL Sodium (137-145) mmol/L BUN (9-20) mg/dL Glucose (74-99) mg/dL POC Glucose (mg/dL) 154 H 145 H 116 H (70-110) mg/dL 11/15/23 11/15/23 11/15/23 Range/Units 10:23 10:23 11:06 Plt Count 125 L (150-450) k/uL Neutrophils # 7.9 H (1.3-7.7) k/uL Lymphocytes # 0.8 L (1.0-4.8) k/uL Sodium 136 L (137-145) mmol/L BUN 21 H (9-20) mg/dL Glucose 270 H (74-99) mg/dL POC Glucose (mg/dL) 321 H (70-110) mg/dL Assessment and Plan Assessment: 1. Ascending thoracic aortic aneurysm 2. Recent dual-chamber pacemaker implantation 3. Symptomatic bradycardia 4. Sick sinus syndrome 5. Paroxysmal atrial fibrillation 6. Syncope and collapse 7. Diabetes mellitus Plan: Patient is noted to have previous thoracic aortic aneurysm seen on chest CTA in March 2023. Vascular surgery does not follow ascending thoracic aortic aneu rysm and recommend if you want further evaluation to consult cardiothoracic surgery or outpatient consultation with cardiothoracic surgery. Continue rest of medical management per primary medical team and cardiology. Thank you for this consultation, we will sign off at this time. The impression and plan of care has been dictated as directed. Dr. Hogan I performed a history and examination of this patient, discussed the same with the dictator. I agree with the dictator's note ,documented as a scribe. Any additional findings or plans will be noted.
[2023-11-15 16:25] LABS: Glucose,Whole Blood 221 mg/dL (70-110)
--- NOTE | 2023-11-15 17:52 | P.GSCN ---
History of Present Illness Consult date: 11/15/23 Reason for Consult: Aneurysm on chest x-ray Requesting physician: Claribel Lopez History of present illness: This is a pleasant 68-year-old male with a history of atrial fibrillation, coronary artery disease, cardiomyopathy, sick sinus syndrome, hypertension, hyperlipidemia and diabetes. Patient came in after he was feeling weak and lightheaded and then had collapsed on the bathroom floor. He underwent dual- chamber pacemaker implantation yesterday. When patient was admitted he had a chest x-ray that had reported ascending aortic aneurysm. Primary medical team consulted vascular surgery for further evaluation. Patient currently denies any shortness of breath, chest pain, abdominal pain, nausea or vomiting. He did have a prior chest CT angiogram 03/15/2023 that reported no acute pulmonary process with an ascending thoracic aortic aneurysm measuring 4.5 cm. Patient and states that they were aware as patient's states that she does recall reviewing the report back in March. She states she was not referred to any specialist. Review of Systems A 14 point review systems was completed all pertinent positives and negatives as stated in the HPI. Past Medical History Past Medical History: Heart Failure, Diabetes Mellitus Additional Past Medical History / Comment(s): parkinson's disease, CONSTIPATION, PLANTAR FASCITITS, NEUROPATHY, RT BIG TOE BUNION, fluid sac on head, Dr. Champagne's H & P History of Any Multi-Drug Resistant Organisms: None Reported Past Surgical History: Heart Catheterization, Tonsillectomy Additional Past Surgical History / Comment(s): CYSTOPSCOPY-SX FOR BLOCKED URETHRA, COLONOSCOPY, BILAT CATARACTS REMOVED WITH LENS IMPLANTS Past Anesthesia/Blood Transfusion Reactions: No Reported Reaction Past Psychological History: No Psychological Hx Reported Smoking Status: Never smoker Past Alcohol Use History: None Reported Past Drug Use History: None Reported - Past Family History Mother Family Medical History: No Reported History Sister(s) Family Medical History: Cancer Additional Family Medical History / Comment(s): skin Medications and Allergies Home Medications Medication Instructions Recorded Confirmed Type Carbidopa-Levodopa 25-100 mg 1 tab PO QID 11/12/21 11/14/23 History [Sinemet 25-100] Dulaglutide [Trulicity] 1.5 mg SQ TU 11/12/21 11/14/23 History Folic Acid 1 mg PO DAILY 11/12/21 11/14/23 History Furosemide [Lasix] 20 mg PO QAM 11/12/21 11/14/23 History Potassium Chloride ER [K-Dur 10] 10 meq PO QAM 11/12/21 11/14/23 History Rosuvastatin Calcium [Crestor] 5 mg PO DAILY 11/12/21 11/14/23 History metFORMIN HCL [Glucophage] 500 mg PO BID 11/12/21 11/14/23 History Acetaminophen [Tylenol Arthritis] 1,300 mg PO Q8H PRN 12/15/21 11/14/23 History Cholecalciferol [Vitamin D3 (25 50 mcg PO DAILY 12/15/21 11/14/23 History Mcg = 1000 Iu)] Docusate [Colace] 100 mg PO BID 12/15/21 11/14/23 History Linaclotide [Linzess] 145 mcg PO QAM 12/15/21 11/14/23 History Empagliflozin [Jardiance] 10 mg PO QAM 03/15/23 11/14/23 History carvediloL [Coreg] 12.5 mg PO BID 03/15/23 11/14/23 History Insulin Glargine,Hum.rec.anlog 30 units SQ QAM 06/23/23 11/14/23 History [Basaglar Tempo Pen U-100] Apixaban [Eliquis] 5 mg PO BID 11/10/23 11/14/23 History Sacubitril/Valsartan [Entresto 97 1 tab PO BID 11/10/23 11/14/23 History mg-103 mg Tablet] Allergies Allergy/AdvReac Type Severity Reaction Status Date / Time latex Allergy Rash/Hives Verified 11/14/23 08:52 amantadine AdvReac constipatio Verified 11/14/23 08:52 n Surgical - Exam Vital Signs Temp Pulse Resp BP Pulse Ox 98.5 F 87 18 150/92 94 L 11/14/23 03:06 11/14/23 03:06 11/14/23 03:06 11/14/23 03:06 11/14/23 03:06 General appearance: The patient is alert, oriented, appears in no acute d istress. HET: Head is normocephalic and atraumatic. Pupils are equal and reactive. Neck: Supple. Heart: Regular. Lungs: Equal expansion, normal respiratory effort. Abdomen: Soft, nontender, nondistended. Extremities: Normal skin color and turgor. Palpable radial pulses. Left arm in a sling. Neurological: No focal deficits. Strength and sensation are grossly intact. Results - Labs 11/15/23 10:23 11/15/23 10:23 Abnormal Lab Results - Last 24 Hours (Table) 11/14/23 11/14/23 11/15/23 Range/Units 20:26 21:58 05:47 Plt Count (150-450) k/uL Neutrophils # (1.3-7.7) k/uL Lymphocytes # (1.0-4.8) k/uL Sodium (137-145) mmol/L BUN (9-20) mg/dL Glucose (74-99) mg/dL POC Glucose (mg/dL) 154 H 145 H 116 H (70-110) mg/dL 11/15/23 11/15/23 11/15/23 Range/Units 10:23 10:23 11:06 Plt Count 125 L (150-450) k/uL Neutrophils # 7.9 H (1.3-7.7) k/uL Lymphocytes # 0.8 L (1.0-4.8) k/uL Sodium 136 L (137-145) mmol/L BUN 21 H (9-20) mg/dL Glucose 270 H (74-99) mg/dL POC Glucose (mg/dL) 321 H (70-110) mg/dL Diabetes panel 11/15/23 Range/Units 10:23 Sodium 136 L (137-145) mmol/L Potassium 3.8 (3.5-5.1) mmol/L Chloride 103 (98-107) mmol/L Carbon Dioxide 25 (22-30) mmol/L BUN 21 H (9-20) mg/dL Creatinine 0.88 (0.66-1.25) mg/dL Glucose 270 H (74-99) mg/dL Calcium 8.6 (8.4-10.2) mg/dL Calcium panel 11/15/23 Range/Units 10:23 Calcium 8.6 (8.4-10.2) mg/dL Pituitary panel 11/15/23 Range/Units 10:23 Sodium 136 L (137-145) mmol/L Potassium 3.8 (3.5-5.1) mmol/L Chloride 103 (98-107) mmol/L Carbon Dioxide 25 (22-30) mmol/L BUN 21 H (9-20) mg/dL Creatinine 0.88 (0.66-1.25) mg/dL Glucose 270 H (74-99) mg/dL Calcium 8.6 (8.4-10.2) mg/dL Adrenal panel 11/15/23 Range/Units 10:23 Sodium 136 L (137-145) mmol/L Potassium 3.8 (3.5-5.1) mmol/L Chloride 103 (98-107) mmol/L Carbon Dioxide 25 (22-30) mmol/L BUN 21 H (9-20) mg/dL Creatinine 0.88 (0.66-1.25) mg/dL Glucose 270 H (74-99) mg/dL Calcium 8.6 (8.4-10.2) mg/dL - Imaging Chest x-ray: report reviewed (Redemonstrated widened superior mediastinotomy seem to be secondary to an ascending aortic aneurysm as well as 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 Ascending thoracic aortic aneurysm 2. Recent dual-chamber pacemaker implantation 3. Symptomatic bradycardia 4. Sick sinus syndrome 5. Paroxysmal atrial fibrillation 6. Syncope and collapse 7. Diabetes mellitus Plan: Patient is noted to have previous thoracic aortic aneurysm seen on chest CTA in March 2023. Vascular surgery does not follow ascending thoracic aortic aneurysm and recommend if you want further evaluation to consult cardiothoracic surgery or outpatient consultation with cardiothoracic surgery. Continue rest of medical management per primary medical team and cardiology. Thank you for this consultation, we will sign off at this time. The impression and plan of care has been dictated as directed. Dr. Hogan I performed a history and examination of this patient, discussed the same with the dictator. I agree with the dictator's note ,documented as a scribe. Any additional findings or plans will be noted.
[2023-11-15 20:28] LABS: Glucose,Whole Blood 333 mg/dL (70-110)
[2023-11-15] MEDS: INSULIN ASPART (NovoLOG) 100 UNIT/ML VIAL SQ SCH (20:55)
[2023-11-16 06:17] LABS: Glucose,Whole Blood 134 mg/dL (70-110)
[2023-11-16] MEDS: SACUBITRIL/VALSARTAN 49 MG-51 MG TABLET PO SCH (09:16)
--- NOTE | 2023-11-16 11:07 | P.PN ---
Subjective HISTORY OF PRESENT ILLNESS: This is a 68-year-old male with a past medical history significant for mild CAD, cardiomyopathy, sick sinus syndrome, atrial fibrillation, hypertension, hyperlipidemia, diabetes. Patient follows in the office with Dr. Rush. We have been asked to see the patient in consultation for elevated troponins. Patient examined at the bedside in the emergency room. Patient states he was ambulating to the bathroom with a walker. He states that he got into the bathroom and had significant diarrhea. He began to feel lightheaded. He denies having any loss of consciousness. Patient denies any chest pain or pressure. He denies any shortness of breath. The patient was scheduled to undergo dual-chamber pacemaker implantation today conduction system pacing with Dr. Champagne. Does report he has been holding his Eliquis due to his scheduled pacemaker implantation. Patient denies any injury yesterday while in the restroom. He denies any fever or chills. Denies having a cough. Patient is afebrile during hospitalization. His white count is normal. DIAGNOSTICS: - EKG reveals sinus mechanism with left bundle branch block. Heart rate 83.. 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 No acute cardiopulmonary process. - Laboratory data: WBC 9.2. Hemoglobin 16.5. Platelet count 141. Sodium 135. Potassium 3.5. BUN 23. Creatinine 0.83. Magnesium 1.8. Troponin 0.038. - Current home cardiac medications include Entresto 97-103 mg twice a day, carvedilol 12.5 mg twice a day, Eliquis 5 mg twice a day, rosuvastatin 5 mg daily, Lasix 20 mg daily, Jardiance 10 mg daily - Most recent echocardiogram obtained in thousand 23 revealing EF 47%, moderate AR, bicuspid AV, mild MR, mild TR - Cardiac catheterization history: December 2022 revealing mild CAD 11/15/2023 Patient is status post dual-chamber pacemaker implantation with conduction system pacing yesterday by Dr. Champagne. Patient examined this morning at the bedside. Patient denies chest pain or pressure. He denies shortness of breath. Patient's Eliquis has been resumed. Postprocedural x-ray completed with 2-lead cardiac conduction device overlying the left hemothorax with lead tips projecting over the right ventricle and right atrium. No pneumothorax noted. Patient's device was interrogated this morning by the [employer] rep and is functioning appropriately. 11/16/2023 Patient examined this morning the bedside. Patient denies chest pain or pressure. He denies shortness of breath. Vital signs are stable. Patient's blood pressures are on the higher side with a systolic in the 150s. PHYSICAL EXAM: VITAL SIGNS: Reviewed. GENERAL: Well-developed in no acute distress. HEENT: Head is normocephalic. Pupils are equal, round. Sclerae anicteric. Mucous membranes of the mouth are moist. Neck supple. No JVD or thyromegaly LUNGS: Respirations even and unlabored. Lungs essentially clear to auscultation bilaterally. HEART: Regular rate and rhythm. S1 and S2 heard. Systolic and diastolic murmur noted. ABDOMEN: Soft. Nondistended. Nontender. EXTREMITIES: Normal range of motion. No clubbing or cyanosis. Peripheral pulses intact. No lower extremity edema NEUROLOGIC: Awake and alert. Oriented x 3. ASSESSMENT: Lightheadedness without loss of consciousness Minimally elevated troponin of unclear significance, ACS ruled out Sick sinus syndrome, status post dual-chamber pacemaker implantation with conduction system pacing Left bundle branch block Nonischemic cardiomyopathy Mild CAD per cardiac catheterization December 2022 Valvular heart disease Bicuspid aortic valve Paroxysmal atrial fibrillation Ascending thoracic aortic aneurysm Hypertension Hyperlipidemia Diabetes PLAN: Continue current cardiac medications Patient's Eliquis has been resumed Resume Entresto at a lower dose of 49-51 mg twice a day Patient is stable for discharge home today from a cardiac standpoint He is to follow-up postdischarge in the office with Dr. Ruhs We will sign off. Please reconsult if needed. Nurse practitioner note has been reviewed by physician. Signing provider agrees with the documented findings, assessment, and plan of care documented by [employer] OUTREACH WORKER as a scribe. Objective - Vital Signs Vital signs: Vital Signs Temp 98 F 11/16/23 08:00 Pulse 84 11/16/23 08:00 Resp 18 11/16/23 08:00 BP 152/82 11/16/23 08:00 Pulse Ox 95 11/16/23 08:00 FiO2 Intake & Output 11/15/23 11/16/23 11/16/23 18:59 06:59 18:59 Intake Total 330 118 Output Total 570 850 400 Balance -240 -850 -282 Intake: Oral 330 118 Output: Urine 570 850 400 Other: Voiding Method External Catheter External Catheter - Labs CBC & Chem 7: 11/15/23 10:23 11/15/23 10:23 Labs: Abnormal Lab Results - Last 24 Hours (Table) 11/15/23 11/15/23 11/15/23 Range/Units 10:23 10:23 11:06 Plt Count 125 L (150-450) k/uL Neutrophils # 7.9 H (1.3-7.7) k/uL Lymphocytes # 0.8 L (1.0-4.8) k/uL Sodium 136 L (137-145) mmol/L BUN 21 H (9-20) mg/dL Glucose 270 H (74-99) mg/dL POC Glucose (mg/dL) 321 H (70-110) mg/dL 11/15/23 11/15/23 11/16/23 Range/Units 16:05 20:14 05:57 Plt Count (150-450) k/uL Neutrophils # (1.3-7.7) k/uL Lymphocytes # (1.0-4.8) k/uL Sodium (137-145) mmol/L BUN (9-20) mg/dL Glucose (74-99) mg/dL POC Glucose (mg/dL) 221 H 333 H 134 H (70-110) mg/dL
[2023-11-16 11:23] LABS: Glucose,Whole Blood 214 mg/dL (70-110)
[2023-11-16 11:47] LABS: Basophils # (A) 0.1 k/uL (0-0.2); Basophils % (A) 1 %; Eosinophils # (A) 0.3 k/uL (0-0.7); Eosinophils % (A) 4 %; HCT 48.8 % (39.0-53.0); HGB 16.1 gm/dL (13.0-17.5); Lymphocytes # (A) 1.1 k/uL (1.0-4.8); Lymphocytes % (A) 14 %; MCH 31.1 pg (25.0-35.0); MCV 94.1 fL (80.0-100.0); Mean Platelet Volume 7.4; Monocytes # (A) 0.4 k/uL (0-1.0); Monocytes % (A) 5 %; Neutrophils % (A) 75 %; Platelet Count 115 k/uL (150-450); RBC 5.19 m/uL (4.30-5.90)
[2023-11-16 12:07] LABS: ALT 12 U/L (4-49); AST 23 U/L (17-59); African American GFR (CKD) >90 (>60 ml/min/1.73 sqM); Albumin 3.2 g/dL (3.5-5.0); Alkaline Phosphatase 80 U/L (38-126); Anion Gap 4 mmol/L; Blood Urea Nitrogen 19 mg/dL (9-20); Calcium 8.2 mg/dL (8.4-10.2); Carbon Dioxide 24 mmol/L (22-30); Chloride 105 mmol/L (98-107); Glucose 221 mg/dL (74-99); Non-African American GFR(CKD) >90 (>60 ml/min/1.73 sqM); Potassium 4.2 mmol/L (3.5-5.1); Sodium 133 mmol/L (137-145); Total Bilirubin 0.9 mg/dL (0.2-1.3); Total Protein 5.9 g/dL (6.3-8.2)
[2023-11-16 16:04] VITALS: RESP 18
[2023-11-16 16:20] LABS: Glucose,Whole Blood 245 mg/dL (70-110)
--- NOTE | 2023-11-16 17:05 | P.DS ---
Providers Date of admission: 11/14/23 07:18 Expected date of discharge: 11/16/23 Attending physician: Claribel Lopez Primary care physician: Claribel [facility] Hospital Course: diagnosis on discharge: 1. Fall without loss of consciousness 2. Elevated troponin. An acute coronary event has been ruled out 3. History of first-degree AV block with plans to receive pacemaker placement for cardiology. Status post dual-chamber pacemaker implantation on 11/14/2023 4. History of atrial fibrillation. 5. History of ischemic cardiomyopathy 6. History of systolic congestive heart failure 7. History of diabetes mellitus 8. History of Parkinson's disease 9. History of hyperlipidemia 10. AAA seen on chest x-ray. Vascular surgery consulted Hospital course: This is a 68-year-old male patient who presented to ER with concerns of fall. Patient reports that he was going to the bathroom when he became lightheaded and weak. Patient denies loss of consciousness. Patient has a history of first- degree AV block with plans to get pacemaker placement per Dr. Robert. 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 Patient reports he has been off of anticoagulation over the past few days in anticipation of pacemaker placement surgery.At this time patient denies chest pain or shortness breath. Patient denies nausea vomiting or diarrhea. Patient denies any urinary burning or frequency. Patient will be admitted and cardiology services will be consulted On 11/15/2023 patient alert and oriented 3. Patient underwent Dual chamber pacemaker implantation yesterday. This time patient is resting comfortably in bed. Patient deniesChest pain or shortness of breath. Patient denies nausea vomiting or diarrhea. Patient denies any urinary burning or frequency. Current vital signs temp 97.7, heart rate 85, respiratory rate 18, blood pressure 167/87 with a pulse ox of 96% on room air. On 11/16/2023 patient was seen and examined on the medical floor, he is alert and oriented 3 in no apparent distress, he is complaining of generalized fatigue and weakness otherwise he denies any specific complaints, there is no fever or chills no headache or dizziness no chest pain no shortness of breath no cough, no nausea or vomiting no abdominal pain no diarrhea and no urinary symptoms. He was evaluated by cardiology and was cleared for discharge, patient is going to [facility] the [facility] for physical therapy and rehabilitation, dose of and Entresto was decreased during this admission by cardiology, will continue to follow closely. After rehab patient will need computed tomography scan of the chest with contrast, and follow-up with cardiothoracic surgery in regard to ascending aortic aneurysm Patient Condition at Discharge: Stable Plan - Discharge Summary Discharge Rx Participant: No New Discharge Prescriptions: New Sacubitril/Valsartan [Entresto 49 mg-51 mg Tablet] 1 each PO BID 60 Days #30 tab Continue metFORMIN HCL [Glucophage] 500 mg PO BID Folic Acid 1 mg PO DAILY Cholecalciferol [Vitamin D3 (25 Mcg = 1000 Iu)] 50 mcg PO DAILY Linaclotide [Linzess] 145 mcg PO QAM Apixaban [Eliquis] 5 mg PO BID Furosemide [Lasix] 20 mg PO QAM Rosuvastatin Calcium [Crestor] 5 mg PO DAILY Potassium Chloride ER [K-Dur 10] 10 meq PO QAM Carbidopa-Levodopa 25-100 mg [Sinemet 25-100 mg] 1 tab PO QID Dulaglutide [Trulicity] 1.5 mg SQ TU Docusate [Colace] 100 mg PO BID Acetaminophen [Tylenol Arthritis] 1,300 mg PO Q8H PRN PRN Reason: Pain Empagliflozin [Jardiance] 10 mg PO QAM carvediloL [Coreg] 12.5 mg PO BID Insulin Glargine,Hum.rec.anlog [Basaglar Tempo Pen U-100] 30 units SQ QAM Discontinued Sacubitril/Valsartan [Entresto 97 mg-103 mg Tablet] 1 tab PO BID Discharge Medication List Carbidopa-Levodopa 25-100 mg [Sinemet 25-100 mg] 1 tab PO QID 11/12/21 [History] Dulaglutide [Trulicity] 1.5 mg SQ TU 11/12/21 [History] Folic Acid 1 mg PO DAILY 11/12/21 [History] Furosemide [Lasix] 20 mg PO QAM 11/12/21 [History] Potassium Chloride ER [K-Dur 10] 10 meq PO QAM 11/12/21 [History] Rosuvastatin Calcium [Crestor] 5 mg PO DAILY 11/12/21 [History] metFORMIN HCL [Glucophage] 500 mg PO BID 11/12/21 [History] Acetaminophen [Tylenol Arthritis] 1,300 mg PO Q8H PRN 12/15/21 [History] Cholecalciferol [Vitamin D3 (25 Mcg = 1000 Iu)] 50 mcg PO DAILY 12/15/21 [History] Docusate [Colace] 100 mg PO BID 12/15/21 [History] Linaclotide [Linzess] 145 mcg PO QAM 12/15/21 [History] Empagliflozin [Jardiance] 10 mg PO QAM 03/15/23 [History] carvediloL [Coreg] 12.5 mg PO BID 03/15/23 [History] Insulin Glargine,Hum.rec.anlog [Basaglar Tempo Pen U-100] 30 units SQ QAM 06/23 [History] Apixaban [Eliquis] 5 mg PO BID 11/10/23 [History] Sacubitril/Valsartan [Entresto 49 mg-51 mg Tablet] 1 each PO BID 60 Days #30 tab 11/16/23 [Rx] Follow up Appointment(s)/Referral(s): Kymberly Rush MD [STAFF PHYSICIAN] - 1 Week Claribel Lopez MD [Primary Care Provider] - 1-2 days Activity/Diet/Wound Care/Special Instructions: PATIENT EDUCATION MATERIAL Instructions following a heart rhythm device implant. 1. Keep dressing DRY for 5 DAYS. You may cover the area with Saran or Cling Wrap, prior to a shower. 2. The dressing will be removed in the Device [facility] at [facility]. Absorbable sutures were used to close the wound. 3. Avoid raising the left arm above the shoulder level. 4 week restriction 4. Avoid arm movements, like backscratching, rubbing the head, or pulling on a cord. 4 weeks restriction 5. Gentle range of motion movements of the shoulder, closest to the incision should be performed to avoid a frozen shoulder. (Pendulum exercises of the shoulder) 6. The opposite arm may be used freely. 7. Avoid driving for 7 days. 8. Avoid activities such as golfing, swimming, weed whacking, lifting more than 10 pounds weight, bowling, gymnastics and weight training/lifting. (6 weeks restriction) 9. Activities such as wood chopping with an axe, pull-ups in the gymnasium, power lifting, arc-welding, being close to home induction cooktops will always be a problem. 10. Arm sling is only a reminder not to raise the arm above the head. You do not need to keep the arm completely immobilized. Your free to move the arm and use it and for normal activities. In case of any problems, please call [facility], [place], @ [phone], Attention: Device Clinic Device clinic follow-up in 5 days Follow-up with primary mixer operator raw salt in 1 months
[2023-11-16 19:53] LABS: Glucose,Whole Blood 215 mg/dL (70-110)
[2023-11-17 06:18] LABS: Glucose,Whole Blood 163 mg/dL (70-110)
[2023-11-17] MEDS ORDERED: ZINC OXIDE PASTE (Z-GUARD) 1 APPLIC TOPICAL PRN (06:44)
[2023-11-17] MEDS: Linaclotide [Linzess] 145 MCG Capsule PO SCH (08:15)
[2023-11-17 08:36] VITALS: BP 150/80; PULSE 70; TEMP 97.6
[2023-11-21] MEDS ORDERED: NON FORMULARY DRUG (Dulaglutide [Trulicity] 1.5 MG/0.5 ML Each) SQ SCH (08:04)
== END 2023-11-17 11:12 ==
LOC: EC 02:51 → 3SCARD 07:18 → 1SOBS 10:08 → 3SCARD 20:39
PROVIDERS: ADMIT Internal Medicine; ATTEND Internal Medicine
DX: R00.1 Bradycardia, unspecified (principal); I49.5 Sick sinus syndrome; R55 Syncope and collapse; R42 Dizziness and giddiness; R79.89 Other specified abnormal findings of blood chemistry; G20.A1 Parkinson's disease without dyskinesia, without mention of fluctuations; E11.40 Type 2 diabetes mellitus with diabetic neuropathy, unspecified; I11.0 Hypertensive heart disease with heart failure; I50.9 Heart failure, unspecified; I42.9 Cardiomyopathy, unspecified; E78.5 Hyperlipidemia, unspecified; I25.10 Atherosclerotic heart disease of native coronary artery without angina pectoris; I44.7 Left bundle-branch block, unspecified; I42.8 Other cardiomyopathies; Q23.1 Congenital insufficiency of aortic valve; I48.0 Paroxysmal atrial fibrillation; I71.21 Aneurysm of the ascending aorta, without rupture; I71.40 Abdominal aortic aneurysm, without rupture, unspecified; I25.5 Ischemic cardiomyopathy; Z79.84 Long term (current) use of oral hypoglycemic drugs; Z79.85 Long-term (current) use of injectable non-insulin antidiabetic drugs; Z79.899 Other long term (current) drug therapy; Z79.01 Long term (current) use of anticoagulants; Z79.4 Long term (current) use of insulin; Z91.040 Latex allergy status; Z11.52 Encounter for screening for COVID-19
CPT/HCPCS: 96361; 96365; 96366; 99285; 36415; 93005; 97162; 97166; 33208; 80053 ×2; 80048; 83605; 83735; 84484; 85025 ×3; 85610; 85730; 81001; 87636; 71046 ×2; G0378 ×4; C1769 ×2; C1730 ×2; C1887; C1892; C1898; C1785; J2250; J0360; J0690 ×2; J2001; J3010; J0131; Q9967